=== PATIENT | female | born 1985 | race Caucasian/White ===

== ENCOUNTER 2016-11-09 15:07 | Emergency (ER) | payer MEDICAID ==
[2016-11-09 15:27] VITALS: BP 149/101
[2016-11-09] MEDS ORDERED: Lidocaine/EPINEPHrine/Tetracaine Soln 1 ML TOP ONE (17:13)
[2016-11-09] MEDS ORDERED: Lidocaine/EPINEPHrine/Tetracaine Soln 1 ML ONE (17:36)
--- NOTE | 2016-11-09 17:51 | EDM.PDOC ---
ED HPI GENERAL MEDICAL PROBLEM - General Chief Complaint: Skin Complaint Stated Complaint: ABSCESS Time Seen by Provider: 11/09/16 15:37 Source of Information: Reports: Patient, Family (mother), Other (ABLE RN) History Limitations: Reports: No Limitations - History of Present Illness INITIAL COMMENTS - FREE TEXT/NARRATIVE: 30-year-old developmentally disabled woman is brought in by her able briefcase sewer and her mother. She is brought in for evaluation treatment of an abscess to the right ear and the right buttocks. Patient was seen by her primary care provider on Sunday for these. She was started on Bactrim and prescribed bacitracin ointment. The RN who works with her feels that her abscess is worsening. Reportedly this morning she was in tears due to the pain and discomfort. Reportedly she had a temperature of 99.1 this morning. This decreased with Tylenol. Reportedly the abscess to the Buttocks was much larger this morning. Has improved with a whirlpool bath. The RN was concerned as she felt there was a necrotic area to the center of the abscess. She has been treating her pain with Tylenol. Patient is nonverbal is unable to provide any history. Cultures of the wounds were taken at the patient's PCP appointment on Sunday. An I&D to the right ear was preformed by PCP. No results available on my chart. RN reports preliminary report showed normal skin terrell. Location: Reports: Face, Other (buttocks) Treatments PAVING MACHINE OPERATOR: Reports: Other (see below) Other Treatments PAVING MACHINE OPERATOR: antibiotic therapy - Related Data Allergies Allergy/AdvReac Type Severity Reaction Status Date / Time codeine Allergy Hives Verified 11/09/16 15:27 morphine Allergy Hives Verified 11/09/16 15:27 enviromental Allergy Hives Uncoded 11/09/16 15:27 Home Meds: Home Meds Acetaminophen [Tylenol] 1 - 2 tab PO Q4H PRN 09/20/13 [History] Acyclovir [Zovirax] 1 applic TOP 5XDAY PRN 09/20/13 [History] Bisacodyl [Dulcolax] 10 mg RC ASDIRECTED PRN 09/20/13 [History] Euc Oil/Aloe/Lav&Rosem Oils/Pt [Vicks Babyrub Soothing Oint] 1 dose TOP ASDIRECTED PRN 09/20/13 [History] Glucagon,Human Recombinant [Glucagon Emergency Kit] 1 mg IJ ASDIRECTED PRN 09/20 [History] Ketoconazole [Ketoconazole 2%] 1 applic TOP ASDIRECTED 09/20/13 [History] Lactobacillus Acidophilus [Acidophilus] 1 each PO TID 09/20/13 [History] Loratadine 10 mg PO DAILY 09/20/13 [History] Magnesium Hydroxide [Milk of Magnesia] 2 - 4 tbsp PO ASDIRECTED PRN 09/20/13 [ History] Mylanta. 2 - 4 tsp PO ASDIRECTED PRN 09/20/13 [History] Sodium Bicarbonate 1,300 mg PO DAILY 09/20/13 [History] amLODIPine [Norvasc] 5 mg PO BID 09/20/13 [History] guaiFENesin/Dextromethorphan [Robafen Dm Cough Liquid] 2 tsp PO Q4H PRN [History] Amylase/Lipase/Protease [Creon DR 24,000 Units] 0.5 cap PO TID 05/05/15 [History ] Ranitidine HCl [Zantac] 150 mg PO DAILY 05/05/15 [History] Bacitracin [Bacitracin Oint 1 GM] 1 dose TOP ASDIRECTED PRN 11/09/16 [History] Bacitracin/Neomycin/Polymyxin [Triple Antibiotic Oint] 1 each TOP QID 11/09/16 [ History] Calcium Carb/Magnesium Hydrox [IL-Acid DS] 1 each PO BID 11/09/16 [History] [place] Tar [T+Plus] 1 applic TP ASDIRECTED PRN 11/09/16 [History] D-Methorphan Hb/P-Ephed HCl/Cp [Pedia Relief Cough-Cold] 4 tsp PO Q6H PRN [History] Docusate Sodium/Sennosides [Senna Plus] 1 tab PO DAILY PRN 11/09/16 [History] Doxycycline [Vibramycin] 100 mg PO Q12HR #19 cap 11/09/16 [Rx] Enlive Supplement 1 dose PO DAILY 11/09/16 [History] Insulin Glargine,Hum.Rec.Anlog [Toujeo Solostar] 8 unit SQ DAILY 11/09/16 [ History] Lubiprostone [Amitiza] 24 mcg PO BID 11/09/16 [History] Miconazole Nitrate [Monistat 7] 45 gm VG DAILY 11/09/16 [History] Mupirocin Calcium [Mupirocin] 1 appful TP QID 11/09/16 [History] Olopatadine [Patanol 0.1% Ophth Soln] 1 drop EYEBOTH DAILY 11/09/16 [History] Potassium Chloride 20 meq PO DAILY 11/09/16 [History] Sennosides/Docusate Sodium [Senokot-S Tablet] 2 tab PO DAILY 11/09/16 [History] Sulfamethoxazole/Trimethoprim [Bactrim Ds Tablet] 1 each PO BID 11/09/16 [ History] levETIRAcetam [Keppra] 750 mg PO BID 11/09/16 [History] Past Medical History HEENT History: Reports: Other (See Below) Other HEENT History: chronic ear infections Cardiovascular History: Reports: Hypertension Respiratory History: Reports: Asthma Gastrointestinal History: Reports: Pancreatitis Genitourinary History: Reports: Urinary Incontinence, Other (See Below) Other Genitourinary History: kidney reflux Musculoskeletal History: Reports: Other (See Below) Other Musculoskeletal History: contractures Neurological History: Reports: Seizure Psychiatric History: Reports: Other (See Below) Other Psychiatric History: cognitive deficit Endocrine/Metabolic History: Reports: Diabetes, Type II Other Immunologic History: immunoglobin insufficieny Other Dermatologic History: eczema, abcesses - Infectious Disease History Infectious Disease History: Reports: C-Difficile, MRSA Other Infectious Disease History: hx of - Past Surgical History HEENT Surgical History: Reports: Myringotomy w Tube(s) Cardiovascular Surgical History: Reports: Other (See Below) Other Cardiovascular Surgeries/Procedures: PDA surgery when a child Other Musculoskeletal Surgeries/Procedures:: congential hip dislocation Social & Family History - Family History Family Medical History: Noncontributory - Tobacco Use Smoking Status *Q: Never Smoker Second Hand Smoke Exposure: No - Caffeine Use Caffeine Use: Reports: None - Alcohol Use Days Per Week of Alcohol Use: 0 - Recreational Drug Use Recreational Drug Use: No ED ROS GENERAL - Review of Systems Review Of Systems: See Below Constitutional: Reports: Malaise (reports the patinet was tearful this morning; believed to be in discomfort from the abscesses). Denies: Fever (reports a temp of 99.1, responded to tylenol) GI/Abdominal: Denies: Vomiting Skin: Reports: Erythema (right ear and right buttocks), Wound (reportly the abscess to the right buttocks has a nectoric center) ED EXAM, SKIN/RASH Exam: See Below Exam Limited By: Physical Impairment (severe MR) General Appearance: Alert, WD/WN, No Apparent Distress Nose: Normal Inspection Throat/Mouth: Normal Inspection, No Airway Compromise Respiratory/Chest: No Respiratory Distress, Lungs Clear Cardiovascular: Normal Peripheral Pulses, Regular Rate, Rhythm, No Murmur Neurological: Alert Location, Skin: Face (right tragus; approximately 2cm in diameter indurated area with surrounding erythema and increased warmth), Back (right buttocks, superior gluteal fold approximately 2cm in diameter indurated area with approximately 4cm in diameter area of increased warmth and erythema the central indurated area has opened and a small amount of blood is appreciated no necrosis appreciated) ED SKIN PROCEDURES - I&D Site: right tragus Skin Prep: Other (kerraclens) Area Incised With: Needle (18 gauge) Drainage: Purulent, Moderate Amount Probed to Break Up Loculations: No Complications: No Course - Vital Signs Last Recorded V/S: Last Vital Signs Temp 37.2 C 11/09/16 15:14 Pulse 110 H 11/09/16 15:14 Resp 20 11/09/16 15:14 BP 149/101 H 11/09/16 15:14 Pulse Ox 100 11/09/16 15:14 - Orders/Labs/Meds Meds: Medications Discontinued Medications Generic Name Dose Route Start Last Admin Trade Name Pablo PRN Reason Stop Dose Admin Doxycycline Hyclate 100 mg 11/09/16 18:11 11/09/16 18:43 Vibramycin PO 11/09/16 18:12 100 mg ONETIME ONE Administration Lidocaine/Tetracaine 1 ml 11/09/16 17:13 11/09/16 17:34 Let Soln TOP 11/09/16 17:14 1 ml ONETIME ONE Administration Lidocaine/Tetracaine Confirm 11/09/16 17:36 Let Soln Administered 11/09/16 17:37 Dose 1 ml .ROUTE .STK-MED ONE - Re-Assessments/Exams Free Text/Narrative Re-Assessment/Exam: 11/09/16 17:55 I attempted to contact Dr. Adorno for more information and culture results but was unable to get ahold of him. I&D of the abscess to the right ear was preformed utilizing an 18 gauge needle. The patient tolerated the procedure well. Cultures were not taken as they had been by her PCP. I did not feel the area to the right buttocks required I&D at this time. Offered additional pain medication. It was decided to keep her on tylenol and motrin due to her allergies and seizure history. Will keep on bactim and add doxycycline. Close follow-up with PCP. Discharge instructions as documented. Departure - Departure Time of Disposition: 18:07 Disposition: Home, Self-Care 01 Condition: Fair Clinical Impression: Abscess Cellulitis Qualifiers: Site of cellulitis: face Qualified Code(s): L03.211 - Cellulitis of face - Discharge Information Prescriptions: Doxycycline [Vibramycin] 100 mg PO Q12HR #19 cap Instructions: Cellulitis, Adult, Abscess, [id number] Referrals: Kyle Dobbs MD [Primary Care Provider] - Forms: ED Department Discharge Additional Instructions: Continue on the Bactrim and bacitracin. Doxycycline 1 tab PO bid x 10 days. Continue with warm soaks to the abscesses. Follow-up with PCP in 7-10 days for a recheck. OTC tylenol or motrin as needed for pain relief. Please return to the ER should her symptoms change or worsen.
[2016-11-09] MEDS ORDERED: Doxycycline 100 MG Cap PO ONE (18:11)
== END 2016-11-09 18:40 | disposition home or self-care (01) ==
LOC: JD.ED 15:07
DX: L03.211 Cellulitis of face (principal); L02.31 Cutaneous abscess of buttock; I10 Essential (primary) hypertension; J45.909 Unspecified asthma, uncomplicated; E11.9 Type 2 diabetes mellitus without complications; Z98.890 Other specified postprocedural states; Z96.22 Myringotomy tube(s) status; Z79.4 Long term (current) use of insulin; Z79.899 Other long term (current) drug therapy; Z88.5 Allergy status to narcotic agent
CPT/HCPCS: 99283; A9270; 10160

== ENCOUNTER 2018-11-08 13:08 | Emergency (ER) | payer MEDICAID ==
[2018-11-08] MEDS ORDERED: Sodium Chloride 0.9% 10 ML Syringe FLUSH PRN (14:25)
[2018-11-08] MEDS ORDERED: Sodium Chloride 0.9% 500 ML IV SCH (14:30)
--- NOTE | 2018-11-08 15:36 | EDM.PDOC ---
ED HPI GENERAL MEDICAL PROBLEM - General Chief Complaint: Gastrointestinal Problem Stated Complaint: FEVER,NOT EATING,DIARRHEA Time Seen by Provider: 11/08/18 13:35 Source of Information: Reports: Family, RN History Limitations: Reports: Physical Impairment - History of Present Illness INITIAL COMMENTS - FREE TEXT/NARRATIVE: Patient is a 32-year-old female from [place]. Patient presents to the ED with mother and also nurse that takes care of the patient. They're concerned patient has persistent diarrhea. Diarrhea has been noted over the last 9 days. States patient has had 3 episodes yesterday unclear how many today.In addition patient was feverish with nausea and vomiting of 101.9F this past Sunday. Patient has not had any further fevers. Her appetite is poor. She's been having a difficult time in taking her medications. Of note [facility] member at the [facility] vomited with no diarrhea and symptoms subsided quickly. Mother and nurse present are concerned patient may have pancreatitis . She's had one episode of pancreatitis leading to difficulties with eating. Patient has been drink plenty of fluids. There has been no ingestion of any bad or questionable food. Patient has not been on any recent antibiotics. Nor has the patient had any dark tarry stools, bloody stools or any complaints of pain with urination. No foul order noted to her urine. She does have a rash to her low back, buttocks, and groin region diagnosed as psoriasis. This is not new but chronic. There's been no cough. Patient has history of C. difficile. Her mouth is moist. Nursing staff noted patient's heart rate was elevated. 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 Treatments SPOOL CARRIER: Reports: Acetaminophen Other Treatments SPOOL CARRIER: 1130 - Related Data Allergies Allergy/AdvReac Type Severity Reaction Status Date / Time codeine Allergy Hives Verified 11/08/18 13:15 morphine Allergy Hives Verified 11/08/18 13:15 enviromental Allergy Hives Uncoded 11/08/18 13:15 Home Meds: Home Meds Acetaminophen [Tylenol] 1 - 2 tab PO Q4H PRN 09/20/13 [History] Acyclovir [Zovirax 5% Oint] 1 applic TOP 5XDAY PRN 09/20/13 [History] Bisacodyl [Dulcolax] 10 mg RC ASDIRECTED PRN 09/20/13 [History] Euc Oil/Aloe/Lav&Rosem Oils/Pt [Vicks Babyrub Soothing Oint] 1 dose TOP ASDIRECTED PRN 09/20/13 [History] Ketoconazole [Nizoral 2% Shampoo] 1 applic TOP ASDIRECTED 09/20/13 [History] Lactobacillus Acidophilus [Acidophilus] 1 each PO TID 09/20/13 [History] Loratadine 10 mg PO DAILY 09/20/13 [History] Magnesium Hydroxide [Milk of Magnesia] 2 - 4 tbsp PO ASDIRECTED PRN 09/20/13 [ History] Mylanta. 2 - 4 tsp PO ASDIRECTED PRN 09/20/13 [History] Sodium Bicarbonate 1,300 mg PO DAILY 09/20/13 [History] amLODIPine [Norvasc] 5 mg PO BID 09/20/13 [History] guaiFENesin/Dextromethorphan [Robafen Dm Cough Liquid] 2 tsp PO Q4H PRN [History] Amylase/Lipase/Protease [Rom DR 24,000 Unit] 0.5 cap PO TID 05/05/15 [History] Bacitracin [Bacitracin Oint 1 GM] 1 dose TOP ASDIRECTED PRN 11/09/16 [History] Bacitracin/Neomycin/Polymyxin [Triple Antibiotic Oint] 1 each TOP QID 11/09/16 [ History] Calcium Carb/Magnesium Hydrox [ID-Acid DS] 1 each PO BID 11/09/16 [History] Chlorpheniramin/Pseudoephed/Dm [Pedia Relief Cough-Cold] 4 tsp PO Q6H PRN [History] [place] Tar [T-Plus] 1 applic TP ASDIRECTED PRN 11/09/16 [History] Docusate Sodium/Sennosides [Senna Plus] 1 tab PO DAILY PRN 11/09/16 [History] Enlive Supplement 1 dose PO DAILY 11/09/16 [History] Lubiprostone [Amitiza] 24 mcg PO BID 11/09/16 [History] Miconazole Nitrate [Monistat 7] 45 gm VG DAILY 11/09/16 [History] Mupirocin Calcium [Mupirocin] 1 appful TP QID 11/09/16 [History] Olopatadine [Patanol 0.1% Ophth Soln] 1 drop EYEBOTH DAILY 11/09/16 [History] Sennosides/Docusate Sodium [Senokot-S Tablet] 2 tab PO DAILY 11/09/16 [History] levETIRAcetam [Keppra] 750 mg PO BID 11/09/16 [History] Ferrous Sulfate [Iron] 325 mg PO BID #60 tablet 11/08/18 [Rx] Hyoscyamine [Hyomax-SL] 0.125 mg SL BID 11/08/18 [History] Insulin Glarg,Human.Rec.Analog [Lantus Solostar] 8 unit SUBCUT DAILY 11/08/18 [ History] Nystatin [Nystatin Crm] 0 gm TOP TID 11/08/18 [History] Pantoprazole Sodium [Protonix] 20 mg PO DAILY 11/08/18 [History] Past Medical History HEENT History: Reports: Other (See Below) Other HEENT History: chronic ear infections Cardiovascular History: Reports: Hypertension Respiratory History: Reports: Asthma Gastrointestinal History: Reports: Pancreatitis Genitourinary History: Reports: Urinary Incontinence, Other (See Below) Other Genitourinary History: kidney reflux Musculoskeletal History: Reports: Other (See Below) Other Musculoskeletal History: contractures Neurological History: Reports: Seizure Psychiatric History: Reports: Other (See Below) Other Psychiatric History: cognitive deficit Endocrine/Metabolic History: Reports: Diabetes, Type II Other Immunologic History: immunoglobin insufficieny Other Dermatologic History: eczema, abcesses - Infectious Disease History Infectious Disease History: Reports: C-Difficile, MRSA Other Infectious Disease History: hx of - Past Surgical History HEENT Surgical History: Reports: Myringotomy w Tube(s) Cardiovascular Surgical History: Reports: Other (See Below) Other Cardiovascular Surgeries/Procedures: PDA surgery when a child Other Musculoskeletal Surgeries/Procedures:: congential hip dislocation Social & Family History - Family History Family Medical History: Noncontributory - Tobacco Use Smoking Status *Q: Never Smoker - Caffeine Use Caffeine Use: Reports: None ED ROS GENERAL - Review of Systems Review Of Systems: Unable To Obtain ED EXAM, GI/ABD - Physical Exam Exam: See Below Exam Limited By: Other (Patient is mentally disabled unable to vocalize. Patient is laying on her back/left side. Makes eye contact does not appear in acute distress. Per family this is her normal mentation.) General Appearance: Alert, WD/WN, No Apparent Distress Eyes: Bilateral: Normal Appearance Ears: Normal External Exam, Normal Canal, Hearing Grossly Normal, Normal TMs Nose: Normal Inspection, Normal Mucosa, No Blood Throat/Mouth: Other (Unable to visualize the posterior pharynx patient is uncooperative.) Head: Atraumatic, Normocephalic Neck: Normal Inspection, Supple, Non-Tender, Full Range of Motion. No: Lymphadenopathy (L), Lymphadenopathy (R) Respiratory/Chest: No Respiratory Distress, Lungs Clear, Normal Breath Sounds, No Accessory Muscle Use, Chest Non-Tender Cardiovascular: Normal Peripheral Pulses, Regular Rate, Rhythm GI/Abdominal Exam: Normal Bowel Sounds, Soft, Non-Tender, No Organomegaly, No Distention Extremities: Normal Inspection, Non-Tender Neurological: Alert, Oriented, CN II-XII Intact, Normal Cognition, No Motor/ Sensory Deficits Psychiatric: Normal Affect (Per family), Normal Mood (Per family) Skin Exam: Warm, Dry, Intact, Normal Color Course - Vital Signs Last Recorded V/S: Last Vital Signs Temp 98.2 F 11/08/18 17:30 Pulse 94 11/08/18 17:30 Resp 16 11/08/18 17:30 BP 123/78 11/08/18 17:30 Pulse Ox 99 11/08/18 17:30 - Orders/Labs/Meds Labs: Laboratory Tests 11/08/18 11/08/18 11/08/18 Range/Units 14:40 14:40 14:45 WBC 6.86 (3.98-10.04) K/mm3 RBC 3.95 L (3.98-5.22) M/mm3 Hgb 8.6 L D (11.2-15.7) gm/L Hct 30.6 L (34.1-44.9) % MCV 77.5 L D (79.4-94.8) fl MCH 21.8 L (25.6-32.2) pg MCHC 28.1 L (32.2-35.5) g/dl RDW Std Deviation 45.2 (36.4-46.3) fL Plt Count 111 L (182-369) K/mm3 Neut % (Auto) 64.6 (34.0-71.1) % Lymph % (Auto) 21.1 (19.3-51.7) % Andrews % (Auto) 13.6 H (4.7-12.5) % Eos % (Auto) 0.6 L (0.7-5.8) Baso % (Auto) 0.1 (0.1-1.2) % Neut # (Auto) 4.43 (1.56-6.13) K/mm3 Lymph # (Auto) 1.45 (1.18-3.74) K/mm3 Andrews # (Auto) 0.93 H (0.24-0.36) K/mm3 Eos # (Auto) 0.04 (0.04-0.36) K/mm3 Baso # (Auto) 0.01 (0.01-0.08) K/mm3 Manual Slide Review Abnormal smear Sodium 142 (136-145) mEq/L Potassium 3.8 (3.5-5.1) mEq/L Chloride 104 (98-107) mEq/L Carbon Dioxide 29 (21-32) mEq/L Anion Gap 12.8 (5-15) BUN 14 (7-18) mg/dL Creatinine 0.8 (0.55-1.02) mg/dL Est Cr Clr Drug Dosing TNP Estimated GFR (MDRD) > 60 (>60) mL/min BUN/Creatinine Ratio 17.5 (14-18) Glucose 110 H (74-106) mg/dL Calcium 9.6 (8.5-10.1) mg/dL Iron 19 L (50-170) ug/dL TIBC 338 (100-400) ug/dL % Saturation 6 L (20-55) % Transferrin 270 (202-364) mg/dL Total Bilirubin 0.2 (0.2-1.0) mg/dL AST 25 (15-37) U/L ALT 21 (14-59) U/L Alkaline Phosphatase 71 (46-116) U/L C-Reactive Protein 8.8 H* (<1.0) mg/dL Total Protein 6.6 (6.4-8.2) g/dl Albumin 2.9 L (3.4-5.0) g/dl Globulin 3.7 gm/dL Albumin/Globulin Ratio 0.8 L (1-2) Lipase 340 (73-393) U/L Urine Color (Yellow) Urine Appearance (Clear) Urine pH (5.0-8.0) Ur Specific Edwards (1.005-1.030) Urine Protein (Negative) Urine Glucose (UA) (Negative) Urine Ketones (Negative) Urine Occult Blood (Negative) Urine Nitrite (Negative) Urine Bilirubin (Negative) Urine Urobilinogen (0.2-1.0) Ur Leukocyte Esterase (Negative) Urine RBC (0-5) /hpf Urine WBC (0-5) /hpf Ur Epithelial Cells (0-5) /hpf Urine Bacteria (FEW) /hpf Urine Mucus (FEW) /hpf C.difficile [id number]-NAP1-B1 C. difficile Tox (PCR) 11/08/18 11/08/18 Range/Units 15:05 23:59 WBC (3.98-10.04) K/mm3 RBC (3.98-5.22) M/mm3 Hgb (11.2-15.7) gm/L Hct (34.1-44.9) % MCV (79.4-94.8) fl MCH (25.6-32.2) pg MCHC (32.2-35.5) g/dl RDW Std Deviation (36.4-46.3) fL Plt Count (182-369) K/mm3 Neut % (Auto) (34.0-71.1) % Lymph % (Auto) (19.3-51.7) % Andrews % (Auto) (4.7-12.5) % Eos % (Auto) (0.7-5.8) Baso % (Auto) (0.1-1.2) % Neut # (Auto) (1.56-6.13) K/mm3 Lymph # (Auto) (1.18-3.74) K/mm3 Andrews # (Auto) (0.24-0.36) K/mm3 Eos # (Auto) (0.04-0.36) K/mm3 Baso # (Auto) (0.01-0.08) K/mm3 Manual Slide Review Sodium (136-145) mEq/L Potassium (3.5-5.1) mEq/L Chloride (98-107) mEq/L Carbon Dioxide (21-32) mEq/L Anion Gap (5-15) BUN (7-18) mg/dL Creatinine (0.55-1.02) mg/dL Est Cr Clr Drug Dosing Estimated GFR (MDRD) (>60) mL/min BUN/Creatinine Ratio (14-18) Glucose (74-106) mg/dL Calcium (8.5-10.1) mg/dL Iron (50-170) ug/dL TIBC (100-400) ug/dL % Saturation (20-55) % Transferrin (202-364) mg/dL Total Bilirubin (0.2-1.0) mg/dL AST (15-37) U/L ALT (14-59) U/L Alkaline Phosphatase (46-116) U/L C-Reactive Protein (<1.0) mg/dL Total Protein (6.4-8.2) g/dl Albumin (3.4-5.0) g/dl Globulin gm/dL Albumin/Globulin Ratio (1-2) Lipase (73-393) U/L Urine Color Yellow (Yellow) Urine Appearance Clear (Clear) Urine pH 6.5 (5.0-8.0) Ur Specific Edwards 1.015 (1.005-1.030) Urine Protein Trace H (Negative) Urine Glucose (UA) Negative (Negative) Urine Ketones Negative (Negative) Urine Occult Blood Trace-intact H (Negative) Urine Nitrite Negative (Negative) Urine Bilirubin Negative (Negative) Urine Urobilinogen 0.2 (0.2-1.0) Ur Leukocyte Esterase Negative (Negative) Urine RBC 0-5 (0-5) /hpf Urine WBC 0-5 (0-5) /hpf Ur Epithelial Cells 0-5 (0-5) /hpf Urine Bacteria Not seen (FEW) /hpf Urine Mucus Not seen (FEW) /hpf C.difficile 027-[id number] Presumptive negative C. difficile Tox (PCR) Negative Meds: Medications Discontinued Medications Generic Name Dose Route Start Last Admin Trade Name Freq PRN Reason Stop Dose Admin Sodium Chloride 500 mls @ 250 mls/hr 11/08/18 14:30 11/08/18 14:47 Normal Saline IV 250 mls/hr ASDIRECTED OC Administration Sodium Chloride 10 ml 11/08/18 14:25 11/08/18 14:31 Saline Flush FLUSH 10 ml ASDIRECTED PRN Administration Keep Vein Open - Re-Assessments/Exams Free Text/Narrative Re-Assessment/Exam: On exam patient is mildly tachycardic with normotensive blood pressure. Heart rate 102. Temp 97.8F. Oromucosa is moist. Abdomen is soft nondistended with normoactive bowel sounds. Patient does not appear in acute distress. Mentation is normal per family. I will go ahead and obtain a peripheral IV with blood culture times one, CBC, chem 14, CRP, lipase, urinalysis per quick in and out catheter, and stool WBCs. Have also ordered a fluid bolus of 500 mL of normal saline. 1344 Labs reviewed: CBC indicated a normal white blood cell count of 6.86. Hemoglobin low at 8.6, MCV 77.5, platelet count 111, monocytes 13.6, monocyte numbers 0.93. Sodium 142, potassium 3.8, CO2 29, creatinine 0.8, glucose 110, CRP 8.8, lipase normal at 340. UA trace protein and trace occult blood. Per mother patient is currently on her period. 11/08/18 16:44 I did discussed patient with PCP Dr. Adorno who is fortunately heavy antiarmor weapons infantryman. He does not recall patient having a history of anemia. Recommended iron studies and place patient on iron supplement. F/U in the clinic with him next week. Agrees diarrhea may be a viral GI bug with recent exposure to someone that lives in the same facility with suspected viral GI bug. 1657 With female nurse present digital rectal exam performed with formed brown stool within the rectal vault. Hemoccult test was negative. Vital signs blood pressure 93/50. Heart rate 72. Patient resting completed. She is afebrile. Patient has not had a bowel movement since presenting to the ED. I will discharge patient home with nursing staff and mother. Stool studies have been ordered. Collection device for the stool study as well as instructions on where to delivered have been provided. Return precautions were discussed with them. They had no further questions or concerns and agreed with plan. Discharge instructions as documented. Departure - Departure Time of Disposition: 17:01 Disposition: Home, Self-Care 01 Condition: Good Clinical Impression: Poor appetite, Dehydration Diarrhea Qualifiers: Diarrhea type: unspecified type Qualified Code(s): R19.7 - Diarrhea, unspecified Anemia Qualifiers: Anemia type: unspecified type Qualified Code(s): D64.9 - Anemia, unspecified - Discharge Information Prescriptions: Ferrous Sulfate [Iron] 325 mg PO BID #60 tablet Instructions: Diarrhea, Adult, Anemia, Viral Gastroenteritis, Adult, Easy-to- Read, Food Choices to Help Relieve Diarrhea, Adult, Dehydration, Adult Referrals: Kyle Dobbs MD [Primary Care Provider] - Forms: ED Department Discharge Additional Instructions: Please take the iron supplement as prescribed. In addition it is unclear what is causing the diarrhea. Patient did have formed stool within her rectal vault suggesting that she may be constipated. X-ray of the abdomen reviewed no acute findings. Final interpretation is pending. CBC indicated patient is anemic with negative hemoccult. Patient will be placed on iron supplement. Patient may become constipated with the taking. Suggest taking with cybv-[id number]-[id number] calcium supplements while on the iron supplement. Please follow up with Dr. Sheri Sabillon this coming week for reevaluation. Push the fluids. Refrain from any foods that may cause irritation or worsen her diarrhea. Outpatient order for stool wbc 's and also C. difficile have been placed. Once the stool sample is present please bring to the [facility] lab. See Dr. Adorno for results. Please return back to the ED if patient develops any new or worsening symptoms.
[2018-11-08 17:54] VITALS: BP 123/78
--- NOTE | 2018-11-11 07:17 | CR ---
Abdomen: Upright view of the abdomen was obtained. Comparison: Prior abdominal x-ray of 06/03/09. Slight increased gas within colon and small bowel is seen. Gas is interposed between liver and diaphragm as a normal variant. Gas most likely due to mild ileus or excessive swallowed gas. Findings do not appear as prominent as on prior abdominal x-ray. No free air is seen. Impression: 1. Slight increased gas as noted above. 2. No acute abnormality is otherwise seen on single upright abdominal x-ray. Diagnostic code #2
== END 2018-11-08 17:40 | disposition home or self-care (01) ==
LOC: JD.ED 13:08
DX: E86.0 Dehydration (principal); R19.7 Diarrhea, unspecified; D64.9 Anemia, unspecified; R63.0 Anorexia; I10 Essential (primary) hypertension; J45.909 Unspecified asthma, uncomplicated; E11.9 Type 2 diabetes mellitus without complications; Z79.4 Long term (current) use of insulin; Z79.899 Other long term (current) drug therapy; Z88.5 Allergy status to narcotic agent; Z91.09 Other allergy status, other than to drugs and biological substances
CPT/HCPCS: 36415; 74018; 80053; 81001; 82270; 83540; 83690; 84466; 85025; 86140; 87040; 87493; 89055; 96360; 96361; 99284; J7040; 99283

== ENCOUNTER 2019-05-11 14:59 | Emergency (ER) | payer MEDICAID ==
--- NOTE | 2019-05-11 15:41 | EDM.PDOC ---
ED HPI GENERAL MEDICAL PROBLEM - General Chief Complaint: ENT Problem Stated Complaint: RT EAR PAIN Time Seen by Provider: 05/11/19 15:27 Source of Information: Reports: Provider (Able staff worker), RN Notes Reviewed History Limitations: Reports: No Limitations - History of Present Illness INITIAL COMMENTS - FREE TEXT/NARRATIVE: Patient is a 33-year-old female who is brought to the ER by [facility] staff for issues with the right ear. The staff member noticed that the patient was grabbing or tugging at her right ear today, more than she normally does. She did notice some yellowish kind of malodorous drainage from the ear at this time. The patient is nonverbal, so she cannot say if this hurts or not. They had not given her anything for pain. The worker does note that the patient did have a recent cold last week, but states that her symptoms seem to have subsided. The patient does have a positive history for diabetes, chronic ear infections, hypertension, asthma, and other skin issues. She suffers from a developmental delay as well. The worker notes that the patient did not have a fever while in their care, however at time of triage she was mildly febrile with a fever of 99.2 F. Treatments BRAILLE TEACHER: Reports: Other (see below) Other Treatments BRAILLE TEACHER: none - Related Data Allergies Allergy/AdvReac Type Severity Reaction Status Date / Time codeine Allergy Hives Verified 11/08/18 13:15 morphine Allergy Hives Verified 11/08/18 13:15 enviromental Allergy Hives Uncoded 11/08/18 13:15 Home Meds: Home Meds Acetaminophen [Tylenol] 1 - 2 tab PO Q4H PRN 09/20/13 [History] Acyclovir [Zovirax 5% Oint] 1 applic TOP 5XDAY PRN 09/20/13 [History] Bisacodyl [Dulcolax] 10 mg RC ASDIRECTED PRN 09/20/13 [History] Euc Oil/Aloe/Lav&Rosem Oils/Pt [Vicks Babyrub Soothing Oint] 1 dose TOP ASDIRECTED PRN 09/20/13 [History] Ketoconazole [Nizoral 2% Shampoo] 1 applic TOP ASDIRECTED 09/20/13 [History] Lactobacillus Acidophilus [Acidophilus] 1 each PO TID 09/20/13 [History] Loratadine 10 mg PO DAILY 09/20/13 [History] Magnesium Hydroxide [Milk of Magnesia] 2 - 4 tbsp PO ASDIRECTED PRN 09/20/13 [ History] Mylanta. 2 - 4 tsp PO ASDIRECTED PRN 09/20/13 [History] Sodium Bicarbonate 1,300 mg PO DAILY 09/20/13 [History] amLODIPine [Norvasc] 5 mg PO BID 09/20/13 [History] guaiFENesin/Dextromethorphan [Robafen Dm Cough Liquid] 2 tsp PO Q4H PRN [History] Amylase/Lipase/Protease [Rom SOTO 24,000 Unit] 0.5 cap PO TID 05/05/15 [History] Bacitracin [Bacitracin Oint 1 GM] 1 dose TOP ASDIRECTED PRN 11/09/16 [History] Bacitracin/Neomycin/Polymyxin [Triple Antibiotic Oint] 1 each TOP QID 11/09/16 [ History] Calcium Carb/Magnesium Hydrox [SD-Acid DS] 1 each PO BID 11/09/16 [History] Chlorpheniramin/Pseudoephed/Dm [Pedia Relief Cough-Cold] 4 tsp PO Q6H PRN [History] [place] Tar [T-Plus] 1 applic TP ASDIRECTED PRN 11/09/16 [History] Docusate Sodium/Sennosides [Senna Plus] 1 tab PO DAILY PRN 11/09/16 [History] Enlive Supplement 1 dose PO DAILY 11/09/16 [History] Lubiprostone [Amitiza] 24 mcg PO BID 11/09/16 [History] Miconazole Nitrate [Monistat 7] 45 gm VG DAILY 11/09/16 [History] Mupirocin Calcium [Mupirocin] 1 appful TP QID 11/09/16 [History] Olopatadine [Patanol 0.1% Ophth Soln] 1 drop EYEBOTH DAILY 11/09/16 [History] Sennosides/Docusate Sodium [Senokot-S Tablet] 2 tab PO DAILY 11/09/16 [History] levETIRAcetam [Keppra] 750 mg PO BID 11/09/16 [History] Ferrous Sulfate [Iron] 325 mg PO BID #60 tablet 11/08/18 [Rx] Hyoscyamine [Hyomax-SL] 0.125 mg SL BID 11/08/18 [History] Insulin Glarg,Human.Rec.Analog [Lantus Solostar] 8 unit SUBCUT DAILY 11/08/18 [ History] Nystatin [Nystatin Crm] 0 gm TOP TID 11/08/18 [History] Pantoprazole Sodium [Protonix] 20 mg PO DAILY 11/08/18 [History] Amoxicillin 875 mg PO BID #20 tab 05/11/19 [Rx] Ciprofloxacin/Dexamethasone [Ciprodex Otic Susp] 4 drop OT BID #1 bottle [Rx] Past Medical History HEENT History: Reports: Other (See Below) Other HEENT History: chronic ear infections Cardiovascular History: Reports: Hypertension Respiratory History: Reports: Asthma Gastrointestinal History: Reports: Pancreatitis Genitourinary History: Reports: Urinary Incontinence, Other (See Below) Other Genitourinary History: kidney reflux Musculoskeletal History: Reports: Other (See Below) Other Musculoskeletal History: contractures Neurological History: Reports: Seizure Psychiatric History: Reports: Other (See Below) Other Psychiatric History: cognitive deficit Endocrine/Metabolic History: Reports: Diabetes, Type II Other Immunologic History: immunoglobin insufficieny Other Dermatologic History: eczema, abcesses - Infectious Disease History Infectious Disease History: Reports: C-Difficile, MRSA Other Infectious Disease History: hx of - Past Surgical History HEENT Surgical History: Reports: Myringotomy w Tube(s) Cardiovascular Surgical History: Reports: Other (See Below) Other Cardiovascular Surgeries/Procedures: PDA surgery when a child Other Musculoskeletal Surgeries/Procedures:: congential hip dislocation Social & Family History - Family History Family Medical History: Noncontributory - Tobacco Use Smoking Status *Q: Never Smoker - Caffeine Use Caffeine Use: Reports: None - Recreational Drug Use Recreational Drug Use: No ED ROS ENT - Review of Systems Review Of Systems: See Below Constitutional: Reports: Fever. Denies: Chills, Malaise, Decreased Appetite HEENT: Reports: Ear Discharge (R ear), Ear Pain (R ear) Respiratory: Denies: Shortness of Breath, Cough Cardiovascular: Denies: Chest Pain GI/Abdominal: Denies: Abdominal Pain, Constipation, Diarrhea, Nausea, Vomiting : Denies: Dysuria, Frequency, Urgency ED EXAM, ENT - Physical Exam Exam: See Below Exam Limited By: No Limitations General Appearance: Alert, WD/WN, No Apparent Distress Eye Exam: Bilateral Eye: EOMI (pt tracks me in room), Normal Inspection, PERRL Ears: Normal External Exam (left ear), Normal Canal (left ear), Hearing Grossly Normal (bilateral), Normal TMs (bilateral), Canal Discharge (R EAC). No: Auricular Tenderness, Mastoid Tenderness, Canal Blood, Canal Swelling (Right EAC ) Nose: Normal Inspection Mouth/Throat: Normal Inspection, Normal Gums, Normal Lips, Normal Oropharynx, Normal Teeth Head: Atraumatic, Normocephalic Neck: Normal Inspection Respiratory/Chest: No Respiratory Distress, Lungs Clear, Normal Breath Sounds, No Accessory Muscle Use, Chest Non-Tender Cardiovascular: Normal Peripheral Pulses, Regular Rate, Rhythm, No Murmur GI/Abdominal: Normal Bowel Sounds, Soft, Non-Tender, No Distention, No Mass Extremities: Normal Inspection, Normal Capillary Refill Neurological: Alert (staff states that she is acting appropriate per her usual behaviors.) Psychiatric: Normal Affect, Normal Mood Skin: Warm, Dry, Intact, Normal Color, No Rash Course - Vital Signs Last Recorded V/S: Last Vital Signs Temp 99.2 F 05/11/19 15:13 Pulse 96 05/11/19 15:13 Resp 20 05/11/19 15:13 BP 142/98 H 05/11/19 15:13 Pulse Ox 97 05/11/19 15:13 - Re-Assessments/Exams Free Text/Narrative Re-Assessment/Exam: 05/11/19 15:39 Presents to the ED for evaluation of right ear pain. Upon physical examination , there is some drainage coming from the right ear, and it appears she has in external otitis media. Patient will be put on Ciprodex eardrops, and amoxicillin oral, due to her diabetic status. Patient was mildly febrile with a temperature of 99.2 F. Staff will be advised to give her some Tylenol or ibuprofen every 6 hours as needed for further fever/pain relief. Departure - Departure Time of Disposition: 15:39 Disposition: Home, Self-Care 01 Condition: Good Clinical Impression: Otitis externa Qualifiers: Otitis externa type: unspecified type Chronicity: acute Laterality: right Qualified Code(s): H60.501 - Unspecified acute noninfective otitis externa, right ear - Discharge Information *PRESCRIPTION DRUG MONITORING PROGRAM REVIEWED*: No *COPY OF PRESCRIPTION DRUG MONITORING REPORT IN PATIENT PHIL: No Prescriptions: Amoxicillin 875 mg PO BID #20 tab Ciprofloxacin/Dexamethasone [Ciprodex Otic Susp] 4 drop OT BID #1 bottle Instructions: Otitis Externa, [id number] Referrals: Kyle Dobbs MD [Primary Care Provider] - Forms: ED Department Discharge Additional Instructions: You were evaluated in the ER today regarding your right ear pain. Your physical exam demonstrated that you are suffering from a right external otitis media, which is an infection of the ear canal. Treatment for this is antibiotic eardrops, and oral antibiotics, as you are a diabetic. These medications were electronically prescribed to the [facility] pharmacy located near [facility], this pharmacy is only open from 12 to 4 PM today, you will need to go there during this timeframe to obtain this medication and take as prescribed. These medications will be needed for 10 days, recommend that you follow-up with your regular care provider after the medications have been given time to work, sometime at the end of this week would be appropriate for reevaluation. You may give Tylenol or ibuprofen every 6 hours as needed for further pain relief. Please return to the ER however if your symptoms change or worsen. Sepsis Event Note - Evaluation Sepsis Screening Result: No Definite Risk - Focused Exam Vital Signs: Vital Signs Temp Pulse Resp BP Pulse Ox 05/11/19 15:13 99.2 F 96 20 142/98 H 97 Date Exam was Performed: 05/11/19 Time Exam was Performed: 15:48
== END 2019-05-11 15:45 | disposition home or self-care (01) ==
LOC: JD.ED 14:59
CPT/HCPCS: 99282; 99283

== ENCOUNTER 2023-04-24 17:38 | Inpatient (IN) | payer MEDICARE, MEDICAID ==
[2023-04-24] MEDS ORDERED: Ondansetron 4 MG/2 ML SDV IVPUSH ONE ×2 (18:14→21:16)
[2023-04-24] MEDS ORDERED: Sodium Chloride 0.9% 10 ML Syringe FLUSH PRN (18:14)
[2023-04-24] MEDS: Sodium Chloride 0.9% 1,000 ML IV SCH ×2 (19:01→22:41)
[2023-04-24 20:00] LABS: BASOPHILS PERCENT AUTO 0.4 % (0.0-1.0); EOSINOPHILS ABSOLUTE AUTO 0.2 K/mm3 (0.0-0.4); EOSINOPHILS PERCENT AUTO 1.9 % (0.0-6.0); HEMATOCRIT 52.8 % (37.0-47.0); HEMOGLOBIN 17.3 gm/dl (12.0-16.0); IMMATURE GRAN ABSOLUTE AUTO 0.01 K/mm3 (0.00-0.05); IMMATURE GRAN PERCENT AUTO 0.1 % (0.0-0.4); LYMPHOCYTES ABSOLUTE AUTO 0.6 K/mm3 (1.0-4.8); LYMPHOCYTES PERCENT AUTO 6.9 % (24.0-44.0); MEAN CORPUSCULAR HEMOGLOBIN 27.9 pg (28.0-32.0); MEAN CORPUSCULAR HGB CONC 32.8 g/dl (32.0-36.0); MONOCYTES ABSOLUTE AUTO 0.8 K/mm3 (0.0-0.8); MONOCYTES PERCENT AUTO 10.1 % (0.0-8.0); NEUTROPHILS ABSOLUTE AUTO 6.7 K/mm3 (1.8-7.7); NEUTROPHILS PERCENT AUTO 80.6 % (41.0-71.0); PLATELET COUNT,PLT 120 K/mm3 (150-400); RED BLOOD CELL COUNT 6.21 M/mm3 (4.10-5.30)
[2023-04-24 20:25] LABS: A/G RATIO 0.9 (1-2); ALBUMIN 3.4 g/dl (3.4-5.0); BILIRUBIN TOTAL 0.4 mg/dL (0.2-1.0); BUN/CREATININE RATIO 21.8 (14-18); C-REACTIVE PROTEIN 2.5 mg/dL (<1.0); CALCIUM 9.6 mg/dL (8.5-10.1); CREATININE 1.1 mg/dL (0.55-1.02); EST CRCL DRUG DOSING (CG) 49.81 mL/min; PROTEIN TOTAL,TP 7.1 g/dl (6.4-8.2)
[2023-04-24] MEDS ORDERED: REMDESIVIR 200 MG in Sodium Chloride 0.9% 250 ML IV ONE (20:37)
[2023-04-24] MEDS ORDERED: Dexamethasone 4 MG/ML SDV IVPUSH ONE (20:41)
[2023-04-24] MEDS ORDERED: Ondansetron 4 MG/2 ML SDV ONE (21:15)
[2023-04-24] MEDS ORDERED: Sodium Chloride 0.9% 1,000 ML ONE (22:33)
[2023-04-24] MEDS: Potassium Chloride 10 MEQ in Premix Bag 1 BAG IV SCH (22:41)
[2023-04-25] MEDS: Potassium Chloride 10 MEQ in Premix Bag 1 BAG IV SCH ×4 (00:17→03:59)
[2023-04-25] MEDS ORDERED: Sodium Chloride 0.9% 1,000 ML IV ONE (05:02)
[2023-04-25] MEDS: Sodium Chloride 0.9% 1,000 ML IV SCH ×2 (05:03→06:32)
[2023-04-25 06:41] LABS: MEAN CORPUSCULAR HEMOGLOBIN 27.9 pg (28.0-32.0); MEAN CORPUSCULAR HGB CONC 31.4 g/dl (32.0-36.0); PLATELET COUNT,PLT 78 K/mm3 (150-400); RED BLOOD CELL COUNT 4.94 M/mm3 (4.10-5.30); WHITE BLOOD CELL COUNT,WBC 5.65 K/mm3 (3.9-11.3)
[2023-04-25 06:54] LABS: ANION GAP 14.7 (5-15); BUN/CREATININE RATIO 23.6 (14-18); CALCIUM 7.5 mg/dL (8.5-10.1); CREATININE 1.1 mg/dL (0.55-1.02); EST CRCL DRUG DOSING (CG) 49.81 mL/min; POTASSIUM,K 3.7 mEq/L (3.5-5.1)
[2023-04-25 07:01] LABS: HEMOGLOBIN 13.8 gm/dl (12.0-16.0); MEAN CORPUSCULAR VOLUME 89.1 fl (83.0-99.0)
[2023-04-25] MEDS ORDERED: Albuterol 0.083% 2.5 MG/3 ML Neb Soln NEB PRN (08:16)
[2023-04-25] MEDS ORDERED: Acetaminophen 325 MG Tab PO PRN (08:16)
[2023-04-25] MEDS ORDERED: Albuterol/Ipratropium 3.0-0.5 MG/3 ML Neb Soln NEB PRN (08:16)
[2023-04-25] MEDS ORDERED: Sennosides/Docusate Sodium 50-8.6 MG Tab PO SCH (09:00)
[2023-04-25] MEDS ORDERED: Non-Formulary Medication 1 Each (Olopatadine 2.5 ML Bottle) EYEBOTH SCH (09:00)
[2023-04-25] MEDS: levETIRAcetam 500 MG Tab PO SCH ×2 (09:13→21:03)
[2023-04-25] MEDS: Dexamethasone 6 MG TABLET PO SCH (09:15)
[2023-04-25] MEDS: Sodium Bicarbonate 650 MG Tab PO SCH (09:15)
[2023-04-25] MEDS: Ferrous Sulfate 324 MG Tab.EC PO SCH (09:15)
[2023-04-25] MEDS: Famotidine 20 MG Tab PO SCH (09:16)
[2023-04-25] MEDS: Metoprolol Succinate 25 MG Tab.ER PO SCH (09:16)
[2023-04-25] MEDS: Calcium Polycarbophil 625 MG Tab PO SCH ×2 (09:18→21:15)
[2023-04-25] MEDS: Insulin Glargine,Human Rec. Analog 100 Units/ML 3 ML Pen SUBCUT SCH (09:33)
[2023-04-25] MEDS ORDERED: Magnesium Sulfate/Water 2 GM in Premix Bag 1 BAG IV ONE (10:00)
[2023-04-25] MEDS: Insulin Lispro 100 Unit/ML 3 ML KwikPen SUBCUT SCH ×3 (11:42→20:58)
[2023-04-25] MEDS: Lubiprostone 24 MCG Cap PO SCH ×2 (17:23→17:55)
[2023-04-25] MEDS: Rosuvastatin 10 MG Tab PO SCH (21:02)
[2023-04-25] MEDS: REMDESIVIR 100 MG in Sodium Chloride 0.9% 250 ML IV SCH (21:05)
[2023-04-26] MEDS: Ondansetron 4 MG/2 ML SDV IV PRN ×2 (06:08→16:51)
[2023-04-26 06:28] LABS: BASOPHILS PERCENT AUTO 0.2 % (0.0-1.0); EOSINOPHILS PERCENT AUTO 0.2 % (0.0-6.0); HEMATOCRIT 43.9 % (37.0-47.0); IMMATURE GRAN ABSOLUTE AUTO 0.01 K/mm3 (0.00-0.05); IMMATURE GRAN PERCENT AUTO 0.2 % (0.0-0.4); LYMPHOCYTES ABSOLUTE AUTO 0.7 K/mm3 (1.0-4.8); LYMPHOCYTES PERCENT AUTO 16.4 % (24.0-44.0); MEAN CORPUSCULAR HEMOGLOBIN 27.8 pg (28.0-32.0); MEAN CORPUSCULAR HGB CONC 31.9 g/dl (32.0-36.0); MEAN CORPUSCULAR VOLUME 87.3 fl (83.0-99.0); MEAN PLATELET VOLUME 11.4 fl (9.4-12.3); MONOCYTES ABSOLUTE AUTO 0.5 K/mm3 (0.0-0.8); MONOCYTES PERCENT AUTO 11.5 % (0.0-8.0); NEUTROPHILS ABSOLUTE AUTO 3.2 K/mm3 (1.8-7.7); NEUTROPHILS PERCENT AUTO 71.5 % (41.0-71.0); PLATELET COUNT,PLT 86 K/mm3 (150-400); RED BLOOD CELL COUNT 5.03 M/mm3 (4.10-5.30); WHITE BLOOD CELL COUNT,WBC 4.51 K/mm3 (3.9-11.3)
[2023-04-26 07:18] LABS: SLIDE REVIEW ABNORMAL SMEAR
[2023-04-26] MEDS: Lubiprostone 24 MCG Cap PO SCH ×2 (07:32→16:55)
[2023-04-26 07:45] LABS: A/G RATIO 0.9 (1-2); ALBUMIN 2.7 g/dl (3.4-5.0); ANION GAP 10.9 (5-15); BILIRUBIN TOTAL 0.2 mg/dL (0.2-1.0); BUN/CREATININE RATIO 21.1 (14-18); C-REACTIVE PROTEIN 11.4 mg/dL (<1.0); CALCIUM 7.8 mg/dL (8.5-10.1); CREATININE 0.9 mg/dL (0.55-1.02); EST CRCL DRUG DOSING (CG) 60.88 mL/min; MAGNESIUM 2.1 mg/dL (1.8-2.4); POTASSIUM,K 3.9 mEq/L (3.5-5.1); PROTEIN TOTAL,TP 5.8 g/dl (6.4-8.2)
[2023-04-26] MEDS: Insulin Glargine,Human Rec. Analog 100 Units/ML 3 ML Pen SUBCUT SCH (08:30)
[2023-04-26] MEDS: Insulin Lispro 100 Unit/ML 3 ML KwikPen SUBCUT SCH ×4 (08:33→21:03)
[2023-04-26] MEDS: Calcium Polycarbophil 625 MG Tab PO SCH ×3 (08:34→21:12)
[2023-04-26] MEDS: Dexamethasone 6 MG TABLET PO SCH (08:34)
[2023-04-26] MEDS: Famotidine 20 MG Tab PO SCH (08:34)
[2023-04-26] MEDS: Sodium Bicarbonate 650 MG Tab PO SCH ×2 (08:34→08:46)
[2023-04-26] MEDS: levETIRAcetam 500 MG Tab PO SCH ×2 (08:34→21:11)
[2023-04-26] MEDS: Ferrous Sulfate 324 MG Tab.EC PO SCH ×3 (08:34→09:00)
[2023-04-26] MEDS: Metoprolol Succinate 25 MG Tab.ER PO SCH (08:35)
[2023-04-26] MEDS ORDERED: Sodium Chloride 0.45% 1,000 ML IV SCH (09:00)
[2023-04-26] MEDS: REMDESIVIR 100 MG in Sodium Chloride 0.9% 250 ML IV SCH (20:59)
[2023-04-26] MEDS: Rosuvastatin 10 MG Tab PO SCH (21:10)
[2023-04-27 06:26] LABS: BASOPHILS PERCENT AUTO 0.2 % (0.0-1.0); HEMATOCRIT 40.7 % (37.0-47.0); IMMATURE GRAN ABSOLUTE AUTO 0.01 K/mm3 (0.00-0.05); IMMATURE GRAN PERCENT AUTO 0.2 % (0.0-0.4); LYMPHOCYTES ABSOLUTE AUTO 1.2 K/mm3 (1.0-4.8); LYMPHOCYTES PERCENT AUTO 20.1 % (24.0-44.0); MEAN CORPUSCULAR HEMOGLOBIN 26.9 pg (28.0-32.0); MEAN CORPUSCULAR HGB CONC 31.9 g/dl (32.0-36.0); MEAN CORPUSCULAR VOLUME 84.3 fl (83.0-99.0); MONOCYTES ABSOLUTE AUTO 0.8 K/mm3 (0.0-0.8); MONOCYTES PERCENT AUTO 13.2 % (0.0-8.0); NEUTROPHILS ABSOLUTE AUTO 3.9 K/mm3 (1.8-7.7); NEUTROPHILS PERCENT AUTO 66.3 % (41.0-71.0); PLATELET COUNT,PLT 83 K/mm3 (150-400); RED BLOOD CELL COUNT 4.83 M/mm3 (4.10-5.30); WHITE BLOOD CELL COUNT,WBC 5.82 K/mm3 (3.9-11.3)
[2023-04-27 06:53] LABS: A/G RATIO 0.9 (1-2); ALBUMIN 2.6 g/dl (3.4-5.0); ANION GAP 10.9 (5-15); BILIRUBIN TOTAL 0.3 mg/dL (0.2-1.0); BUN/CREATININE RATIO 16.7 (14-18); C-REACTIVE PROTEIN 6.4 mg/dL (<1.0); CALCIUM 8.5 mg/dL (8.5-10.1); CREATININE 0.9 mg/dL (0.55-1.02); EST CRCL DRUG DOSING (CG) 60.88 mL/min; MAGNESIUM 1.8 mg/dL (1.8-2.4); POTASSIUM,K 3.9 mEq/L (3.5-5.1); PROTEIN TOTAL,TP 5.6 g/dl (6.4-8.2)
[2023-04-27 07:07] LABS: SLIDE REVIEW ABNORMAL SMEAR
[2023-04-27] MEDS: Lubiprostone 24 MCG Cap PO SCH (07:17)
[2023-04-27] MEDS: Insulin Lispro 100 Unit/ML 3 ML KwikPen SUBCUT SCH (08:50)
[2023-04-27] MEDS: Metoprolol Succinate 25 MG Tab.ER PO SCH (08:50)
[2023-04-27] MEDS: Dexamethasone 6 MG TABLET PO SCH (08:50)
[2023-04-27] MEDS: Famotidine 20 MG Tab PO SCH (08:51)
[2023-04-27] MEDS: Calcium Polycarbophil 625 MG Tab PO SCH (08:51)
[2023-04-27] MEDS: levETIRAcetam 500 MG Tab PO SCH (08:51)
[2023-04-27] MEDS: Sodium Bicarbonate 650 MG Tab PO SCH (08:52)
[2023-04-27] MEDS: Ferrous Sulfate 324 MG Tab.EC PO SCH (08:52)
[2023-04-27 08:59] VITALS: BP 142/101; PULSE 88
[2023-04-27] MEDS ORDERED: Insulin Glargine,Human Rec. Analog 100 Units/ML 3 ML Pen SUBCUT SCH (09:00)
[2023-04-27] MEDS ORDERED: LUBIPROSTONE 24 MCG PO SCH (17:00)
== END 2023-04-27 15:10 | disposition other institution (70) | DRG 682 ==
LOC: JD.ED 17:38 → JD.MS 22:16
PROVIDERS: ADMIT Internal Medicine; ATTEND Internal Medicine
PROC: 3E0333Z Introduction of Anti-inflammatory into Peripheral Vein, Percutaneous Approach (ICD-10-PCS; principal; 2023-04-24)
PROC: XW033E5 Introduction of Remdesivir Anti-infective into Peripheral Vein, Percutaneous Approach, New Technology Group 5 (ICD-10-PCS; 2023-04-24)
DX: N17.9 Acute kidney failure, unspecified (principal); U07.1 COVID-19; E87.6 Hypokalemia; I10 Essential (primary) hypertension; I95.9 Hypotension, unspecified; D69.6 Thrombocytopenia, unspecified; Z66 Do not resuscitate; E83.42 Hypomagnesemia; R62.50 Unspecified lack of expected normal physiological development in childhood; J45.909 Unspecified asthma, uncomplicated; E86.0 Dehydration; Z96.22 Myringotomy tube(s) status; E11.9 Type 2 diabetes mellitus without complications; Z79.4 Long term (current) use of insulin; Z87.39 Personal history of other diseases of the musculoskeletal system and connective tissue; Z87.898 Personal history of other specified conditions; Z99.3 Dependence on wheelchair; Z79.899 Other long term (current) drug therapy; Z88.5 Allergy status to narcotic agent; Z88.8 Allergy status to other drugs, medicaments and biological substances; Z98.890 Other specified postprocedural states
CPT/HCPCS: 36415; 71045; 71045-26; 80048; 80053; 82947; 83605; 83735; 85025; 85027; 86140; 94667; 94760; 94761; 94762; 96361; 96365; 96375; 96376; 99285; 99285-25; A9270-GY; J0248; J1100; J1815; J1815-GY; J2405; J3475; J3480; J3490; J7030; J7050; J8540

== ENCOUNTER 2023-04-28 09:17 | Emergency (ER) | payer MEDICARE, MEDICAID ==
[2023-04-28] MEDS ORDERED: Ondansetron 4 MG Tab.DIS PO ONE (10:02)
[2023-04-28 10:44] VITALS: BP 142/95; PULSE 63
== END 2023-04-28 10:43 | disposition home or self-care (01) ==
LOC: JD.ED 09:17
DX: I10 Essential (primary) hypertension (principal); F79 Unspecified intellectual disabilities; E11.9 Type 2 diabetes mellitus without complications; J45.909 Unspecified asthma, uncomplicated; Z86.16 Personal history of COVID-19; Z79.899 Other long term (current) drug therapy; Z79.4 Long term (current) use of insulin; Z88.5 Allergy status to narcotic agent; Z91.048 Other nonmedicinal substance allergy status
CPT/HCPCS: 99283; A9270

== ENCOUNTER 2023-05-03 13:14 | Emergency (ER) | payer MEDICARE, MEDICAID ==
[2023-05-03] MEDS ORDERED: cefTRIAXone 2 GM in Sodium Chloride 0.9% 100 ML IV ONE (15:30)
[2023-05-03] MEDS ORDERED: Doxycycline Monohydrate 100 MG Cap PO ONE (15:51)
[2023-05-03] MEDS ORDERED: Albuterol 0.083% 2.5 MG/3 ML Neb Soln NEB ONE (15:57)
[2023-05-03 17:13] VITALS: BP 106/61; PULSE 59
== END 2023-05-03 17:10 | disposition home or self-care (01) ==
LOC: JD.ED 13:14
DX: J18.9 Pneumonia, unspecified organism (principal); I10 Essential (primary) hypertension; J45.909 Unspecified asthma, uncomplicated; E10.9 Type 1 diabetes mellitus without complications; Z86.16 Personal history of COVID-19; Z79.899 Other long term (current) drug therapy; Z88.5 Allergy status to narcotic agent; Z91.048 Other nonmedicinal substance allergy status
CPT/HCPCS: 94640; 96365; 99284; A9270; J0696; J3490; J7620-GY

== ENCOUNTER 2024-03-17 20:37 | Emergency (ER) | payer MEDICARE, MEDICAID ==
[2024-03-17] MEDS ORDERED: Sodium Chloride 0.9% 10 ML Syringe FLUSH PRN (20:57)
[2024-03-17] MEDS: Sodium Chloride 0.9% 1,000 ML IV ONE (21:14)
[2024-03-17 21:24] LABS: HEMATOCRIT 43.9 % (37.0-47.0); HEMOGLOBIN 14.3 gm/dl (12.0-16.0); MEAN CORPUSCULAR HEMOGLOBIN 29.4 pg (28.0-32.0); MEAN CORPUSCULAR HGB CONC 32.6 g/dl (32.0-36.0); MEAN CORPUSCULAR VOLUME 90.1 fl (83.0-99.0); MEAN PLATELET VOLUME 12.4 fl (9.4-12.3); PLATELET COUNT,PLT 108 K/mm3 (150-400); RED BLOOD CELL COUNT 4.87 M/mm3 (4.10-5.30); WHITE BLOOD CELL COUNT,WBC 11.17 K/mm3 (3.9-11.3)
[2024-03-17 21:38] LABS: INR 1.11; PROTHROMBIN TIME 11.7 SECONDS (9.7-12.0)
[2024-03-17 21:48] LABS: LACTIC ACID 1.3 mmol/L (0.4-2.0)
[2024-03-17 21:51] LABS: BAND PERCENT MAN 1 % (0-10); BASOPHILS PERCENT MAN 0 (0.1-1.2); EOSINOPHILS PERCENT MAN 1 % (0.7-5.8); LYMPHOCYTES % ATYPICAL MANUAL 0 %; LYMPHOCYTES PERCENT MAN 8 % (20-40); MONOCYTES PERCENT MAN 7 % (2-10)
[2024-03-17 21:52] LABS: PLATELET COUNT ESTIMATE DECREASED
[2024-03-17 22:02] LABS: CORONAVIRUS COVID-19 NAA NEGATIVE (NEGATIVE); INFLUENZA A NAA NEGATIVE (NEGATIVE); RESPIRATORY SYNCYTIAL VIR NAA NEGATIVE (NEGATIVE)
[2024-03-17 22:25] LABS: APPEARANCE,URINE CLEAR (Clear); BILIRUBIN,URINE NEGATIVE (Negative); COLOR,URINE YELLOW (Yellow); GLUCOSE,URINE NEGATIVE (Negative); KETONES,URINE NEGATIVE (Negative); LEUKOCYTE ESTERASE,URINE TRACE (Negative); NITRITE,URINE POSITIVE (Negative); OCCULT BLOOD,URINE 2+ (Negative); PROTEIN,URINE 1+ (Negative); UROBILINOGEN,URINE 0.2 (0.2-1.0)
[2024-03-17 22:44] LABS: BACTERIA,URINE MANY /hpf (FEW); MUCUS,URINE FEW /hpf (FEW); RBC,URINE 0-5 /hpf (0-5); SQUAMOUS EPITHELIAL CELLS,UR 0-5 /hpf (0-5)
[2024-03-17 22:47] LABS: A/G RATIO 0.8 (1-2); ALBUMIN 2.9 g/dl (3.4-5.0); ANION GAP 10.3 (5-15); BILIRUBIN TOTAL 0.3 mg/dL (0.2-1.0); BUN/CREATININE RATIO 27.8 (14-18); C-REACTIVE PROTEIN 8.76 mg/dL (<0.30); CREATININE 0.9 mg/dL (0.55-1.02); EST CRCL DRUG DOSING (CG) 60.28 mL/min; MAGNESIUM 1.6 mg/dL (1.8-2.4); POTASSIUM,K 3.3 mEq/L (3.5-5.1); PROTEIN TOTAL,TP 6.4 g/dl (6.4-8.2)
[2024-03-17] MEDS: cefTRIAXone 2 GM in Sodium Chloride 0.9% 100 ML IV ONE (23:14)
[2024-03-17] MEDS: Fluconazole 150 MG Tab PO ONE (23:16)
[2024-03-18 00:01] VITALS: BP 132/83; PULSE 96
== END 2024-03-18 00:01 | disposition home or self-care (01) ==
LOC: JD.ED 20:37
DX: R56.9 Unspecified convulsions (principal); N30.00 Acute cystitis without hematuria; I10 Essential (primary) hypertension; J45.909 Unspecified asthma, uncomplicated; Z86.16 Personal history of COVID-19; Z79.4 Long term (current) use of insulin; Z79.899 Other long term (current) drug therapy; Z88.5 Allergy status to narcotic agent; Z91.048 Other nonmedicinal substance allergy status
CPT/HCPCS: 0241U; 36415; 70450; 71045; 80053; 81001; 83605; 83735; 85007; 85027; 85610; 86140; 87040; 96361; 96365; 99285; A9270; J0696; J3490; J7030; 99284

== ENCOUNTER 2025-03-27 14:25 | Inpatient (IN) | payer MEDICARE, MEDICAID ==
[2025-03-27] MEDS: Lactated Ringers 250 ML IV ONE (15:30)
[2025-03-27] MEDS ORDERED: Sodium Chloride 0.9% 10 ML Syringe FLUSH PRN (15:31)
[2025-03-27 15:33] LABS: BASOPHILS ABSOLUTE AUTO 0.1 K/mm3 (0.0-0.2); BASOPHILS PERCENT AUTO 0.9 % (0.0-1.0); EOSINOPHILS ABSOLUTE AUTO 0.0 K/mm3 (0.0-0.4); EOSINOPHILS PERCENT AUTO 0.4 % (0.0-6.0); IMMATURE GRAN ABSOLUTE AUTO 0.03 K/mm3 (0.00-0.05); IMMATURE GRAN PERCENT AUTO 0.4 % (0.0-0.4); LYMPHOCYTES ABSOLUTE AUTO 0.8 K/mm3 (1.0-4.8); LYMPHOCYTES PERCENT AUTO 11.0 % (24.0-44.0); MEAN PLATELET VOLUME 11.2 fl (9.4-12.3); MONOCYTES ABSOLUTE AUTO 0.5 K/mm3 (0.0-0.8); MONOCYTES PERCENT AUTO 7.1 % (0.0-8.0); NEUTROPHILS ABSOLUTE AUTO 6.1 K/mm3 (1.8-7.7); NEUTROPHILS PERCENT AUTO 80.2 % (41.0-71.0); NRBC ABSOLUTE 0.00 (0.00-0.02); NRBC PERCENT 0.0 % (0.0-0.2); PLATELET COUNT,PLT 190 K/mm3 (150-400); RED BLOOD CELL COUNT 5.72 M/mm3 (4.10-5.30); WHITE BLOOD CELL COUNT,WBC 7.62 K/mm3 (3.9-11.3)
[2025-03-27] MEDS: Sodium Chloride 0.9% 10 ML Syringe FLUSH PRN (15:46)
[2025-03-27] MEDS: Iopamidol 612 MG/ML 100 ML Bottle IVPUSH ONE (15:47)
[2025-03-27 16:08] LABS: A/G RATIO 0.8 (1-2); ALANINE AMINOTRANSFERASE,ALT 17 U/L (14-59); ASPARTATE AMNIOTRANSFERASE,AST 23 U/L (15-37); BILIRUBIN TOTAL 0.4 mg/dL (0.2-1.0); CHLORIDE,CL 104 mEq/L (98-107); GLUCOSE RANDOM 160 mg/dL (70-99); POTASSIUM,K 4.5 mEq/L (3.5-5.1); PROTEIN TOTAL,TP 7.4 g/dl (6.4-8.2); SODIUM,NA 141 mEq/L (136-145)
[2025-03-27 16:21] LABS: LACTIC ACID 2.6 mmol/L (0.4-2.0)
[2025-03-27 16:26] LABS: BLOOD UREA NITROGEN,BUN 63 mg/dL (7-18); CARBON DIOXIDE,CO2 20 mEq/L (21-32); CREATININE 2.2 mg/dL (0.55-1.02); ESTIMATED GFR 28 mL/min (>60)
[2025-03-27] MEDS: Norepinephrine Bit/0.9% NaCl 4 MG/250 ML BAG IV SCH (16:49)
[2025-03-27 17:11] LABS: APPEARANCE,URINE CLEAR (Clear); GLUCOSE,URINE NEGATIVE (Negative); OCCULT BLOOD,URINE NEGATIVE (Negative)
[2025-03-27] MEDS: Benzocaine 20% Topical Spray UD MUCMEM ONE (17:11)
[2025-03-27 17:40] LABS: EPITHELIAL CELLS,URINE 0-5 /hpf (0-5); FINE GRANULAR CASTS,URINE 0-5 /lpf (0-5)
[2025-03-27] MEDS: Heparin Sodium 5,000 Units/ML Vial SUBCUT ONE (18:17)
[2025-03-27] MEDS ORDERED: propofoL 1,000 MG/100 ML 100 ML ONE (18:48)
[2025-03-27] MEDS ORDERED: Ketamine HCL/NACL, ISO-OSM 50 MG/5 ML Syringe ONE (18:52)
[2025-03-27] MEDS ORDERED: Midazolam 1 MG/ML 2 ML SDV ONE ×2 (18:52→20:33)
[2025-03-27] MEDS ORDERED: fentaNYL 100 MCG/2 ML SDV ONE ×3 (18:53→21:23)
[2025-03-27] MEDS ORDERED: Lactated Ringers 1,000 ML IV ONE (20:15)
[2025-03-27] MEDS ORDERED: Phenylephrine 1% 10 MG/ML SDV ONE (20:57)
[2025-03-27] MEDS ORDERED: fentaNYL 100 MCG/2 ML SDV IVPUSH PRN (22:16)
[2025-03-27 23:06] LABS: MEAN PLATELET VOLUME 11.0 fl (9.4-12.3); NRBC ABSOLUTE 0.00 (0.00-0.02); NRBC PERCENT 0.0 % (0.0-0.2); PLATELET COUNT,PLT 155 K/mm3 (150-400); RED BLOOD CELL COUNT 4.78 M/mm3 (4.10-5.30); WHITE BLOOD CELL COUNT,WBC 3.32 K/mm3 (3.9-11.3)
[2025-03-27 23:22] LABS: BLOOD UREA NITROGEN,BUN 62 mg/dL (7-18); CARBON DIOXIDE,CO2 20 mEq/L (21-32); CHLORIDE,CL 111 mEq/L (98-107); CREATININE 1.9 mg/dL (0.55-1.02); ESTIMATED GFR 34 mL/min (>60); GLUCOSE RANDOM 162 mg/dL (70-99); POTASSIUM,K 4.0 mEq/L (3.5-5.1); SODIUM,NA 144 mEq/L (136-145)
[2025-03-27] MEDS: Lactated Ringers 1,000 ML IV SCH (23:35)
[2025-03-27] MEDS: Metoprolol Tartrate 5 MG/5 ML SDV IVPUSH ONE (23:43)
[2025-03-28] MEDS: Benzocaine 20% Topical Spray UD MUCMEM ONE (00:26)
[2025-03-28] MEDS: Heparin Sodium 5,000 Units/ML Vial SUBCUT SCH (00:30)
[2025-03-28] MEDS: Ondansetron 4 MG/2 ML SDV IVPUSH PRN (01:48)
[2025-03-28] MEDS: Magnesium Sulfate 2 GM/50 mL 2 GM in Premix Bag 1 BAG IV ONE (02:20)
[2025-03-28 05:53] LABS: BASOPHILS ABSOLUTE AUTO 0.0 K/mm3 (0.0-0.2); BASOPHILS PERCENT AUTO 0.9 % (0.0-1.0); EOSINOPHILS ABSOLUTE AUTO 0.0 K/mm3 (0.0-0.4); EOSINOPHILS PERCENT AUTO 0.0 % (0.0-6.0); IMMATURE GRAN ABSOLUTE AUTO 0.03 K/mm3 (0.00-0.05); IMMATURE GRAN PERCENT AUTO 0.9 % (0.0-0.4); LYMPHOCYTES ABSOLUTE AUTO 0.6 K/mm3 (1.0-4.8); LYMPHOCYTES PERCENT AUTO 17.9 % (24.0-44.0); MEAN PLATELET VOLUME 12.0 fl (9.4-12.3); MONOCYTES ABSOLUTE AUTO 0.3 K/mm3 (0.0-0.8); MONOCYTES PERCENT AUTO 7.9 % (0.0-8.0); NEUTROPHILS ABSOLUTE AUTO 2.4 K/mm3 (1.8-7.7); NEUTROPHILS PERCENT AUTO 72.4 % (41.0-71.0); NRBC ABSOLUTE 0.00 (0.00-0.02); NRBC PERCENT 0.0 % (0.0-0.2); PLATELET COUNT,PLT 143 K/mm3 (150-400); RED BLOOD CELL COUNT 4.86 M/mm3 (4.10-5.30); WHITE BLOOD CELL COUNT,WBC 3.29 K/mm3 (3.9-11.3)
[2025-03-28 06:03] LABS: BLOOD UREA NITROGEN,BUN 58.0 mg/dL (7-18); CARBON DIOXIDE,CO2 24.0 mEq/L (21-32); CHLORIDE,CL 110.0 mEq/L (98-107); CREATININE 2.0 mg/dL (0.55-1.02); EST CRCL DRUG DOSING (CG) 29.32 mL/min; ESTIMATED GFR 32.0 mL/min (>60); GLUCOSE RANDOM 105.0 mg/dL (70-99); POTASSIUM,K 3.0 mEq/L (3.5-5.1); SODIUM,NA 145.0 mEq/L (136-145)
[2025-03-28 06:47] LABS: APPEARANCE,URINE SLT CLOUDY (Clear); GLUCOSE,URINE NEGATIVE (Negative); OCCULT BLOOD,URINE 2+ (Negative)
[2025-03-28 06:55] LABS: BASE EXCESS ARTERIAL -7.0 (-2-2.0); BICARBONATE,ARTERIAL 18.6 meq/L (22.0-26.0); O2 SATURATION ARTERIAL 98.5 % (96.0-97.0); PCO2 ARTERIAL 37.0 mmHg (35.0-45.0); PO2 ARTERIAL 111.0 mmHg (80.0-100.0)
[2025-03-28] MEDS: Linezolid 600 MG/300 ML 600 MG in Premix Bag 1 BAG IV SCH ×2 (09:49→09:57)
[2025-03-28] MEDS: Hydrocortisone Sodium Succinate 100 MG/2 ML SDV IVPUSH ONE (13:49)
[2025-03-28] MEDS: levETIRAcetam 500 MG/5 ML SDV IVPUSH SCH (13:52)
[2025-03-28] MEDS: SODIUM CHLORIDE 0.9% IV SCH (14:33)
[2025-03-28] MEDS: VASOPRESSIN IV SCH (14:33)
[2025-03-28 18:25] LABS: MEAN PLATELET VOLUME 12.2 fl (9.4-12.3); NRBC ABSOLUTE 0.00 (0.00-0.02); NRBC PERCENT 0.0 % (0.0-0.2); PLATELET COUNT,PLT 82 K/mm3 (150-400); RED BLOOD CELL COUNT 3.93 M/mm3 (4.10-5.30); WHITE BLOOD CELL COUNT,WBC 14.63 K/mm3 (3.9-11.3)
[2025-03-28 18:25] LABS: BICARBONATE,ARTERIAL 17.2 meq/L (22.0-26.0); O2 SATURATION ARTERIAL 98.2 % (96.0-97.0); PCO2 ARTERIAL 35.0 mmHg (35.0-45.0); PO2 ARTERIAL 96.0 mmHg (80.0-100.0)
[2025-03-28 18:26] LABS: BASE EXCESS ARTERIAL -8.4 (-2-2.0)
[2025-03-28 18:36] LABS: BLOOD UREA NITROGEN,BUN 42.0 mg/dL (7-18); CARBON DIOXIDE,CO2 19.0 mEq/L (21-32); CHLORIDE,CL 118.0 mEq/L (98-107); CREATININE 1.6 mg/dL (0.55-1.02); EST CRCL DRUG DOSING (CG) 36.65 mL/min; ESTIMATED GFR 42.0 mL/min (>60); GLUCOSE RANDOM 198.0 mg/dL (70-99); POTASSIUM,K 3.9 mEq/L (3.5-5.1); SODIUM,NA 149.0 mEq/L (136-145)
[2025-03-28] MEDS ORDERED: LORazepam 2 MG/ML SDV IVPUSH PRN (18:38)
[2025-03-28] MEDS: LORazepam 2 MG/ML SDV IVPUSH PRN (19:37)
[2025-03-28] MEDS: Hydrocortisone Sodium Succinate 100 MG/2 ML SDV IVPUSH SCH (19:41)
[2025-03-29 06:08] LABS: BASOPHILS ABSOLUTE AUTO 0.1 K/mm3 (0.0-0.2); BASOPHILS PERCENT AUTO 0.4 % (0.0-1.0); EOSINOPHILS ABSOLUTE AUTO 0.0 K/mm3 (0.0-0.4); EOSINOPHILS PERCENT AUTO 0.0 % (0.0-6.0); IMMATURE GRAN ABSOLUTE AUTO 0.10 K/mm3 (0.00-0.05); IMMATURE GRAN PERCENT AUTO 0.6 % (0.0-0.4); LYMPHOCYTES ABSOLUTE AUTO 0.7 K/mm3 (1.0-4.8); LYMPHOCYTES PERCENT AUTO 4.2 % (24.0-44.0); MEAN PLATELET VOLUME 11.7 fl (9.4-12.3); MONOCYTES ABSOLUTE AUTO 0.5 K/mm3 (0.0-0.8); MONOCYTES PERCENT AUTO 3.3 % (0.0-8.0); NEUTROPHILS ABSOLUTE AUTO 14.7 K/mm3 (1.8-7.7); NEUTROPHILS PERCENT AUTO 91.5 % (41.0-71.0); NRBC ABSOLUTE 0.03 (0.00-0.02); NRBC PERCENT 0.2 % (0.0-0.2); PLATELET COUNT,PLT 61 K/mm3 (150-400); RED BLOOD CELL COUNT 3.55 M/mm3 (4.10-5.30); WHITE BLOOD CELL COUNT,WBC 16.05 K/mm3 (3.9-11.3)
[2025-03-29 06:44] LABS: A/G RATIO 0.5 (1-2); ALANINE AMINOTRANSFERASE,ALT 47 U/L (14-59); ASPARTATE AMNIOTRANSFERASE,AST 106 U/L (15-37); BILIRUBIN TOTAL 0.3 mg/dL (0.2-1.0); BLOOD UREA NITROGEN,BUN 33 mg/dL (7-18); CARBON DIOXIDE,CO2 23 mEq/L (21-32); CHLORIDE,CL 118 mEq/L (98-107); CREATININE 1.4 mg/dL (0.55-1.02); EST CRCL DRUG DOSING (CG) 42.25 mL/min; ESTIMATED GFR 49 mL/min (>60); GLUCOSE RANDOM 163 mg/dL (70-99); POTASSIUM,K 3.4 mEq/L (3.5-5.1); PROTEIN TOTAL,TP 4.8 g/dl (6.4-8.2); SODIUM,NA 151 mEq/L (136-145)
[2025-03-29] MEDS: D5 1/2 NS w/ 20 mEq/L KCl 1,000 ML IV SCH (07:39)
[2025-03-29] MEDS ORDERED: 50% Dextrose in Water 50 ML Syringe IVPUSH PRN (08:05)
[2025-03-29] MEDS: Insulin Lispro 100 Unit/ML 3 ML KwikPen SUBCUT SCH (09:40)
[2025-03-29] MEDS: cefTRIAXone 1 GM in Water For Injection, Sterile 10 ML IVPUSH SCH (09:55)
[2025-03-29] MEDS: Pantoprazole 40 MG in Sodium Chloride 0.9% 10 ML IVPUSH SCH (09:55)
[2025-03-29] MEDS: metroNIDAZOLE/Normal Saline 500 MG in Premix Bag 1 BAG IV SCH (10:00)
[2025-03-29 18:36] LABS: BLOOD UREA NITROGEN,BUN 29.0 mg/dL (7-18); CARBON DIOXIDE,CO2 24.0 mEq/L (21-32); CHLORIDE,CL 120.0 mEq/L (98-107); CREATININE 1.4 mg/dL (0.55-1.02); EST CRCL DRUG DOSING (CG) 42.25 mL/min; ESTIMATED GFR 49.0 mL/min (>60); GLUCOSE RANDOM 188.0 mg/dL (70-99); POTASSIUM,K 4.2 mEq/L (3.5-5.1); SODIUM,NA 150.0 mEq/L (136-145)
[2025-03-29 18:40] LABS: TROPONIN I HIGH SENSITIVITY 431.0 pg/mL (<=51)
[2025-03-29] MEDS: Hydrocortisone Sodium Succinate 100 MG/2 ML SDV IVPUSH SCH (19:56)
[2025-03-30 05:43] LABS: BASOPHILS ABSOLUTE AUTO 0.0 K/mm3 (0.0-0.2); BASOPHILS PERCENT AUTO 0.2 % (0.0-1.0); EOSINOPHILS ABSOLUTE AUTO 0.0 K/mm3 (0.0-0.4); EOSINOPHILS PERCENT AUTO 0.0 % (0.0-6.0); IMMATURE GRAN ABSOLUTE AUTO 0.08 K/mm3 (0.00-0.05); IMMATURE GRAN PERCENT AUTO 0.6 % (0.0-0.4); LYMPHOCYTES ABSOLUTE AUTO 0.5 K/mm3 (1.0-4.8); LYMPHOCYTES PERCENT AUTO 3.5 % (24.0-44.0); MEAN PLATELET VOLUME 12.5 fl (9.4-12.3); MONOCYTES ABSOLUTE AUTO 0.5 K/mm3 (0.0-0.8); MONOCYTES PERCENT AUTO 3.6 % (0.0-8.0); NEUTROPHILS ABSOLUTE AUTO 12.5 K/mm3 (1.8-7.7); NEUTROPHILS PERCENT AUTO 92.1 % (41.0-71.0); NRBC ABSOLUTE 0.04 (0.00-0.02); NRBC PERCENT 0.3 % (0.0-0.2); PLATELET COUNT,PLT 60 K/mm3 (150-400); RED BLOOD CELL COUNT 3.29 M/mm3 (4.10-5.30); WHITE BLOOD CELL COUNT,WBC 13.52 K/mm3 (3.9-11.3)
[2025-03-30 07:11] LABS: A/G RATIO 0.6 (1-2); ALANINE AMINOTRANSFERASE,ALT 49.0 U/L (14-59); ASPARTATE AMNIOTRANSFERASE,AST 93.0 U/L (15-37); BILIRUBIN TOTAL 0.2 mg/dL (0.2-1.0); BLOOD UREA NITROGEN,BUN 23.0 mg/dL (7-18); CARBON DIOXIDE,CO2 22.0 mEq/L (21-32); CHLORIDE,CL 121.0 mEq/L (98-107); CREATININE 1.2 mg/dL (0.55-1.02); EST CRCL DRUG DOSING (CG) 49.29 mL/min; ESTIMATED GFR 59.0 mL/min (>60); GLUCOSE RANDOM 263.0 mg/dL (70-99); POTASSIUM,K 3.8 mEq/L (3.5-5.1); PROTEIN TOTAL,TP 4.7 g/dl (6.4-8.2); SODIUM,NA 151.0 mEq/L (136-145)
[2025-03-30] MEDS: Ketorolac 15 MG/ML SDV IVPUSH PRN (11:09)
[2025-03-30] MEDS: Ondansetron 4 MG/2 ML SDV IVPUSH PRN (15:23)
[2025-03-30] MEDS: Insulin Lispro 100 Unit/ML 3 ML KwikPen SUBCUT SCH (17:05)
[2025-03-30] MEDS: Carboxymethylcellulose Sodium 1% Ophth Gel 15 ML Bottle EYEBOTH PRN (18:35)
[2025-03-31 04:27] LABS: BASOPHILS ABSOLUTE AUTO 0.0 K/mm3 (0.0-0.2); BASOPHILS PERCENT AUTO 0.2 % (0.0-1.0); EOSINOPHILS ABSOLUTE AUTO 0.0 K/mm3 (0.0-0.4); EOSINOPHILS PERCENT AUTO 0.0 % (0.0-6.0); IMMATURE GRAN ABSOLUTE AUTO 0.05 K/mm3 (0.00-0.05); IMMATURE GRAN PERCENT AUTO 0.4 % (0.0-0.4); LYMPHOCYTES ABSOLUTE AUTO 0.9 K/mm3 (1.0-4.8); LYMPHOCYTES PERCENT AUTO 7.8 % (24.0-44.0); MEAN PLATELET VOLUME 13.0 fl (9.4-12.3); MONOCYTES ABSOLUTE AUTO 0.4 K/mm3 (0.0-0.8); MONOCYTES PERCENT AUTO 3.4 % (0.0-8.0); NEUTROPHILS ABSOLUTE AUTO 10.4 K/mm3 (1.8-7.7); NEUTROPHILS PERCENT AUTO 88.2 % (41.0-71.0); NRBC ABSOLUTE 0.00 (0.00-0.02); NRBC PERCENT 0.0 % (0.0-0.2); PLATELET COUNT,PLT 66 K/mm3 (150-400); RED BLOOD CELL COUNT 3.29 M/mm3 (4.10-5.30); WHITE BLOOD CELL COUNT,WBC 11.81 K/mm3 (3.9-11.3)
[2025-03-31 05:17] LABS: A/G RATIO 0.5 (1-2); ALANINE AMINOTRANSFERASE,ALT 39.0 U/L (14-59); ASPARTATE AMNIOTRANSFERASE,AST 52.0 U/L (15-37); BILIRUBIN TOTAL 0.3 mg/dL (0.2-1.0); BLOOD UREA NITROGEN,BUN 21.0 mg/dL (7-18); CARBON DIOXIDE,CO2 23.0 mEq/L (21-32); CHLORIDE,CL 119.0 mEq/L (98-107); CREATININE 1.2 mg/dL (0.55-1.02); EST CRCL DRUG DOSING (CG) 49.29 mL/min; ESTIMATED GFR 59.0 mL/min (>60); GLUCOSE RANDOM 203.0 mg/dL (70-99); POTASSIUM,K 3.3 mEq/L (3.5-5.1); PROTEIN TOTAL,TP 4.5 g/dl (6.4-8.2); SODIUM,NA 149.0 mEq/L (136-145)
[2025-03-31 11:46] LABS: KEPPRA 45.9 ug/mL (10.0-40.0)
[2025-03-31 14:30] LABS: TSH 1.431 uIU/mL (0.358-3.74)
[2025-03-31] MEDS: Ondansetron 4 MG/2 ML SDV IVPUSH PRN (21:34)
[2025-04-01 05:16] LABS: BASOPHILS ABSOLUTE AUTO 0.0 K/mm3 (0.0-0.2); BASOPHILS PERCENT AUTO 0.0 % (0.0-1.0); EOSINOPHILS ABSOLUTE AUTO 0.0 K/mm3 (0.0-0.4); EOSINOPHILS PERCENT AUTO 0.6 % (0.0-6.0); IMMATURE GRAN ABSOLUTE AUTO 0.02 K/mm3 (0.00-0.05); IMMATURE GRAN PERCENT AUTO 0.4 % (0.0-0.4); LYMPHOCYTES ABSOLUTE AUTO 0.9 K/mm3 (1.0-4.8); LYMPHOCYTES PERCENT AUTO 18.4 % (24.0-44.0); MEAN PLATELET VOLUME 12.8 fl (9.4-12.3); MONOCYTES ABSOLUTE AUTO 0.3 K/mm3 (0.0-0.8); MONOCYTES PERCENT AUTO 5.4 % (0.0-8.0); NEUTROPHILS ABSOLUTE AUTO 3.8 K/mm3 (1.8-7.7); NEUTROPHILS PERCENT AUTO 75.2 % (41.0-71.0); NRBC ABSOLUTE 0.00 (0.00-0.02); NRBC PERCENT 0.0 % (0.0-0.2); PLATELET COUNT,PLT 62 K/mm3 (150-400); RED BLOOD CELL COUNT 3.05 M/mm3 (4.10-5.30); WHITE BLOOD CELL COUNT,WBC 5.01 K/mm3 (3.9-11.3)
[2025-04-01 05:38] LABS: A/G RATIO 0.7 (1-2); ALANINE AMINOTRANSFERASE,ALT 41.0 U/L (14-59); ASPARTATE AMNIOTRANSFERASE,AST 60.0 U/L (15-37); BILIRUBIN TOTAL 0.2 mg/dL (0.2-1.0); BLOOD UREA NITROGEN,BUN 18.0 mg/dL (7-18); CARBON DIOXIDE,CO2 24.0 mEq/L (21-32); CHLORIDE,CL 119.0 mEq/L (98-107); CREATININE 1.0 mg/dL (0.55-1.02); EST CRCL DRUG DOSING (CG) 59.15 mL/min; ESTIMATED GFR 73.0 mL/min (>60); GLUCOSE RANDOM 198.0 mg/dL (70-99); POTASSIUM,K 3.2 mEq/L (3.5-5.1); PROTEIN TOTAL,TP 4.3 g/dl (6.4-8.2); SODIUM,NA 150.0 mEq/L (136-145)
[2025-04-01] MEDS: Ferrous Sulfate 324 MG Tab.EC PO SCH (08:18)
[2025-04-01] MEDS: Sennosides/Docusate Sodium 50-8.6 MG Tab PO SCH (08:53)
[2025-04-01] MEDS ORDERED: Sodium Chloride 0.9% 10 ML Syringe FLUSH PRN (09:45)
[2025-04-01] MEDS: levETIRAcetam 500 MG/5 ML SDV IVPUSH SCH (09:47)
[2025-04-01] MEDS: Iopamidol 612 MG/ML 100 ML Bottle IVPUSH ONE (10:09)
[2025-04-02 04:45] LABS: BASOPHILS ABSOLUTE AUTO 0.0 K/mm3 (0.0-0.2); BASOPHILS PERCENT AUTO 0.0 % (0.0-1.0); EOSINOPHILS ABSOLUTE AUTO 0.1 K/mm3 (0.0-0.4); EOSINOPHILS PERCENT AUTO 2.4 % (0.0-6.0); IMMATURE GRAN ABSOLUTE AUTO 0.04 K/mm3 (0.00-0.05); IMMATURE GRAN PERCENT AUTO 0.9 % (0.0-0.4); LYMPHOCYTES ABSOLUTE AUTO 0.7 K/mm3 (1.0-4.8); LYMPHOCYTES PERCENT AUTO 15.3 % (24.0-44.0); MEAN PLATELET VOLUME 11.2 fl (9.4-12.3); MONOCYTES ABSOLUTE AUTO 0.4 K/mm3 (0.0-0.8); MONOCYTES PERCENT AUTO 9.8 % (0.0-8.0); NEUTROPHILS ABSOLUTE AUTO 3.2 K/mm3 (1.8-7.7); NEUTROPHILS PERCENT AUTO 71.6 % (41.0-71.0); NRBC ABSOLUTE 0.00 (0.00-0.02); NRBC PERCENT 0.0 % (0.0-0.2); PLATELET COUNT,PLT 56 K/mm3 (150-400); RED BLOOD CELL COUNT 3.09 M/mm3 (4.10-5.30); WHITE BLOOD CELL COUNT,WBC 4.50 K/mm3 (3.9-11.3)
[2025-04-02 05:05] LABS: BLOOD UREA NITROGEN,BUN 9.0 mg/dL (7-18); CARBON DIOXIDE,CO2 29.0 mEq/L (21-32); CHLORIDE,CL 119.0 mEq/L (98-107); CREATININE 0.8 mg/dL (0.55-1.02); EST CRCL DRUG DOSING (CG) 73.93 mL/min; ESTIMATED GFR 95.0 mL/min (>60); GLUCOSE RANDOM 211.0 mg/dL (70-99); POTASSIUM,K 3.4 mEq/L (3.5-5.1); SODIUM,NA 154.0 mEq/L (136-145)
[2025-04-02] MEDS: Insulin Lispro 100 Unit/ML 3 ML KwikPen SUBCUT SCH (11:19)
[2025-04-02] MEDS ORDERED: Metoprolol Tartrate 5 MG/5 ML SDV IVPUSH PRN (11:29)
[2025-04-03 06:15] LABS: BASOPHILS ABSOLUTE AUTO 0.0 K/mm3 (0.0-0.2); BASOPHILS PERCENT AUTO 0.0 % (0.0-1.0); EOSINOPHILS ABSOLUTE AUTO 0.3 K/mm3 (0.0-0.4); EOSINOPHILS PERCENT AUTO 5.3 % (0.0-6.0); IMMATURE GRAN ABSOLUTE AUTO 0.08 K/mm3 (0.00-0.05); IMMATURE GRAN PERCENT AUTO 1.5 % (0.0-0.4); LYMPHOCYTES ABSOLUTE AUTO 0.9 K/mm3 (1.0-4.8); LYMPHOCYTES PERCENT AUTO 17.3 % (24.0-44.0); MEAN PLATELET VOLUME 11.7 fl (9.4-12.3); MONOCYTES ABSOLUTE AUTO 0.6 K/mm3 (0.0-0.8); MONOCYTES PERCENT AUTO 12.0 % (0.0-8.0); NEUTROPHILS ABSOLUTE AUTO 3.4 K/mm3 (1.8-7.7); NEUTROPHILS PERCENT AUTO 63.9 % (41.0-71.0); NRBC ABSOLUTE 0.00 (0.00-0.02); NRBC PERCENT 0.0 % (0.0-0.2); PLATELET COUNT,PLT 72 K/mm3 (150-400); RED BLOOD CELL COUNT 2.96 M/mm3 (4.10-5.30); WHITE BLOOD CELL COUNT,WBC 5.32 K/mm3 (3.9-11.3)
[2025-04-03 06:38] LABS: A/G RATIO 0.7 (1-2); ALANINE AMINOTRANSFERASE,ALT 56.0 U/L (14-59); ASPARTATE AMNIOTRANSFERASE,AST 74.0 U/L (15-37); BILIRUBIN TOTAL 0.3 mg/dL (0.2-1.0); BLOOD UREA NITROGEN,BUN 5.0 mg/dL (7-18); CARBON DIOXIDE,CO2 30.0 mEq/L (21-32); CHLORIDE,CL 110.0 mEq/L (98-107); CREATININE 0.8 mg/dL (0.55-1.02); EST CRCL DRUG DOSING (CG) 73.93 mL/min; ESTIMATED GFR 95.0 mL/min (>60); GLUCOSE RANDOM 207.0 mg/dL (70-99); POTASSIUM,K 3.4 mEq/L (3.5-5.1); PROTEIN TOTAL,TP 4.5 g/dl (6.4-8.2); SODIUM,NA 143.0 mEq/L (136-145)
[2025-04-03] MEDS: AA 5%/Calcium/D20W/Lytes 1,000 ML IV SCH (16:50)
[2025-04-04 06:24] LABS: BLOOD UREA NITROGEN,BUN 4.0 mg/dL (7-18); CARBON DIOXIDE,CO2 31.0 mEq/L (21-32); CHLORIDE,CL 110.0 mEq/L (98-107); CREATININE 0.7 mg/dL (0.55-1.02); GLUCOSE RANDOM 276.0 mg/dL (70-99); SODIUM,NA 145.0 mEq/L (136-145)
[2025-04-04 06:25] LABS: EST CRCL DRUG DOSING (CG) 84.49 mL/min; ESTIMATED GFR 112.0 mL/min (>60)
[2025-04-04 06:47] LABS: POTASSIUM,K 3.4 mEq/L (3.5-5.1)
[2025-04-04] MEDS: AA 5%/Calcium/D20W/Lytes 1,000 ML IV SCH (16:36)
[2025-04-05 06:11] LABS: A/G RATIO 0.7 (1-2); ALANINE AMINOTRANSFERASE,ALT 38.0 U/L (14-59); ASPARTATE AMNIOTRANSFERASE,AST 30.0 U/L (15-37); BILIRUBIN TOTAL 0.2 mg/dL (0.2-1.0); BLOOD UREA NITROGEN,BUN 11.0 mg/dL (7-18); CARBON DIOXIDE,CO2 32.0 mEq/L (21-32); CHLORIDE,CL 116.0 mEq/L (98-107); CREATININE 0.7 mg/dL (0.55-1.02); EST CRCL DRUG DOSING (CG) 84.49 mL/min; ESTIMATED GFR 112.0 mL/min (>60); GLUCOSE RANDOM 260.0 mg/dL (70-99); POTASSIUM,K 3.8 mEq/L (3.5-5.1); PROTEIN TOTAL,TP 4.8 g/dl (6.4-8.2); SODIUM,NA 153.0 mEq/L (136-145)
[2025-04-05] MEDS: MVI, Adult with Vitamin K 10 ML in AA 5%/Calcium/D20W/Lytes 1,000 ML IV ONE (11:42)
[2025-04-06] MEDS: AA 5%/Calcium/D20W/Lytes 1,000 ML IV SCH (05:00)
[2025-04-06 06:12] LABS: A/G RATIO 0.7 (1-2); ALANINE AMINOTRANSFERASE,ALT 28.0 U/L (14-59); ASPARTATE AMNIOTRANSFERASE,AST 21.0 U/L (15-37); BILIRUBIN TOTAL 0.2 mg/dL (0.2-1.0); BLOOD UREA NITROGEN,BUN 16.0 mg/dL (7-18); CARBON DIOXIDE,CO2 34.0 mEq/L (21-32); CHLORIDE,CL 115.0 mEq/L (98-107); CREATININE 0.7 mg/dL (0.55-1.02); EST CRCL DRUG DOSING (CG) 84.49 mL/min; ESTIMATED GFR 112.0 mL/min (>60); GLUCOSE RANDOM 297.0 mg/dL (70-99); POTASSIUM,K 3.8 mEq/L (3.5-5.1); PROTEIN TOTAL,TP 4.9 g/dl (6.4-8.2); SODIUM,NA 153.0 mEq/L (136-145)
[2025-04-06] MEDS: Prochlorperazine 10 MG/2 ML SDV IVPUSH PRN (13:52)
[2025-04-07 06:25] LABS: A/G RATIO 0.8 (1-2); ALANINE AMINOTRANSFERASE,ALT 28.0 U/L (14-59); ASPARTATE AMNIOTRANSFERASE,AST 18.0 U/L (15-37); BILIRUBIN TOTAL 0.3 mg/dL (0.2-1.0); BLOOD UREA NITROGEN,BUN 14.0 mg/dL (7-18); CARBON DIOXIDE,CO2 36.0 mEq/L (21-32); CREATININE 0.8 mg/dL (0.55-1.02); EST CRCL DRUG DOSING (CG) 73.93 mL/min; ESTIMATED GFR 95.0 mL/min (>60); GLUCOSE RANDOM 278.0 mg/dL (70-99); PROTEIN TOTAL,TP 5.6 g/dl (6.4-8.2)
[2025-04-07 06:40] LABS: CHLORIDE,CL 116.0 mEq/L (98-107); POTASSIUM,K 3.7 mEq/L (3.5-5.1)
[2025-04-07 06:57] LABS: SODIUM,NA 155.0 mEq/L (136-145)
[2025-04-07] MEDS: Insulin Glargine,Human Rec. Analog 100 Units/ML 3 ML Pen SUBCUT SCH (07:48)
[2025-04-08 05:55] LABS: MEAN PLATELET VOLUME 12.4 fl (9.4-12.3); NRBC ABSOLUTE 0.04 (0.00-0.02); NRBC PERCENT 0.4 % (0.0-0.2); PLATELET COUNT,PLT 184 K/mm3 (150-400); RED BLOOD CELL COUNT 3.12 M/mm3 (4.10-5.30); WHITE BLOOD CELL COUNT,WBC 9.39 K/mm3 (3.9-11.3)
[2025-04-08 06:19] LABS: A/G RATIO 0.7 (1-2); ALANINE AMINOTRANSFERASE,ALT 25.0 U/L (14-59); ASPARTATE AMNIOTRANSFERASE,AST 19.0 U/L (15-37); BILIRUBIN TOTAL 0.3 mg/dL (0.2-1.0); BLOOD UREA NITROGEN,BUN 18.0 mg/dL (7-18); CARBON DIOXIDE,CO2 36.0 mEq/L (21-32); CHLORIDE,CL 113.0 mEq/L (98-107); CREATININE 0.9 mg/dL (0.55-1.02); EST CRCL DRUG DOSING (CG) 65.72 mL/min; ESTIMATED GFR 83.0 mL/min (>60); GLUCOSE RANDOM 290.0 mg/dL (70-99); POTASSIUM,K 3.6 mEq/L (3.5-5.1); PROTEIN TOTAL,TP 5.8 g/dl (6.4-8.2); SODIUM,NA 155.0 mEq/L (136-145)
[2025-04-08] MEDS: Ondansetron 4 MG Tab.DIS PO PRN (16:57)
[2025-04-09 05:41] LABS: MEAN PLATELET VOLUME 12.6 fl (9.4-12.3); NRBC ABSOLUTE 0.00 (0.00-0.02); NRBC PERCENT 0.0 % (0.0-0.2); PLATELET COUNT,PLT 158 K/mm3 (150-400); RED BLOOD CELL COUNT 3.11 M/mm3 (4.10-5.30); WHITE BLOOD CELL COUNT,WBC 6.72 K/mm3 (3.9-11.3)
[2025-04-09 05:56] LABS: A/G RATIO 0.8 (1-2); ALANINE AMINOTRANSFERASE,ALT 21.0 U/L (14-59); ASPARTATE AMNIOTRANSFERASE,AST 20.0 U/L (15-37); BILIRUBIN TOTAL 0.3 mg/dL (0.2-1.0); BLOOD UREA NITROGEN,BUN 19.0 mg/dL (7-18); CARBON DIOXIDE,CO2 37.0 mEq/L (21-32); CHLORIDE,CL 110.0 mEq/L (98-107); CREATININE 0.8 mg/dL (0.55-1.02); EST CRCL DRUG DOSING (CG) 73.93 mL/min; ESTIMATED GFR 95.0 mL/min (>60); GLUCOSE RANDOM 196.0 mg/dL (70-99); POTASSIUM,K 3.3 mEq/L (3.5-5.1); PROTEIN TOTAL,TP 5.6 g/dl (6.4-8.2); SODIUM,NA 152.0 mEq/L (136-145)
[2025-04-09] MEDS: Potassium Chloride 20 MEQ Tab.ER PO SCH (08:04)
[2025-04-09] MEDS: Magnesium Sulfate 2 GM/50 mL 2 GM in Premix Bag 1 BAG IV ONE (08:09)
[2025-04-10 06:08] LABS: A/G RATIO 0.8 (1-2); ALANINE AMINOTRANSFERASE,ALT 19.0 U/L (14-59); ASPARTATE AMNIOTRANSFERASE,AST 23.0 U/L (15-37); BILIRUBIN TOTAL 0.3 mg/dL (0.2-1.0); BLOOD UREA NITROGEN,BUN 18.0 mg/dL (7-18); CARBON DIOXIDE,CO2 34.0 mEq/L (21-32); CHLORIDE,CL 108.0 mEq/L (98-107); CREATININE 0.8 mg/dL (0.55-1.02); EST CRCL DRUG DOSING (CG) 73.93 mL/min; ESTIMATED GFR 95.0 mL/min (>60); GLUCOSE RANDOM 151.0 mg/dL (70-99); POTASSIUM,K 3.3 mEq/L (3.5-5.1); PROTEIN TOTAL,TP 5.5 g/dl (6.4-8.2); SODIUM,NA 148.0 mEq/L (136-145)
[2025-04-10 08:54] VITALS: BP 137/93; PULSE 107
== END 2025-04-10 12:50 | disposition home or self-care (01) | DRG 397 ==
LOC: JD.ED 14:25 → JD.SDS 18:16 → JD.ICU 22:43 → JD.MS 04-03 19:13
PROVIDERS: ADMIT Surgery; ATTEND Internal Medicine
PROC: 0DS90ZZ Reposition Duodenum, Open Approach (ICD-10-PCS; 2025-03-27)
PROC: 4A133R1 Monitoring of Arterial Saturation, Peripheral, Percutaneous Approach (ICD-10-PCS; 2025-03-27)
PROC: 3E033XZ Introduction of Vasopressor into Peripheral Vein, Percutaneous Approach (ICD-10-PCS; 2025-03-27)
PROC: 3E03329 Introduction of Other Anti-infective into Peripheral Vein, Percutaneous Approach (ICD-10-PCS; 2025-03-27)
PROC: 3E0336Z Introduction of Nutritional Substance into Peripheral Vein, Percutaneous Approach (ICD-10-PCS; 2025-03-27)
PROC: 0DTJ0ZZ Resection of Appendix, Open Approach (ICD-10-PCS; principal; 2025-03-27 18:30)
PROC: 3E03317 Introduction of Other Thrombolytic into Peripheral Vein, Percutaneous Approach (ICD-10-PCS; 2025-04-05)
DX: Q43.3 Congenital malformations of intestinal fixation (principal); K56.609 Unspecified intestinal obstruction, unspecified as to partial versus complete obstruction; I10 Essential (primary) hypertension; A41.9 Sepsis, unspecified organism; E10.9 Type 1 diabetes mellitus without complications; R65.21 Severe sepsis with septic shock; R57.1 Hypovolemic shock; Z91.048 Other nonmedicinal substance allergy status; I21.A1 Myocardial infarction type 2; K56.601 Complete intestinal obstruction, unspecified as to cause; D84.9 Immunodeficiency, unspecified; E87.20 Acidosis, unspecified; N17.9 Acute kidney failure, unspecified; E87.0 Hyperosmolality and hypernatremia; Z66 Do not resuscitate; Q43.8 Other specified congenital malformations of intestine; H54.7 Unspecified visual loss; J45.909 Unspecified asthma, uncomplicated; G40.909 Epilepsy, unspecified, not intractable, without status epilepticus; N18.9 Chronic kidney disease, unspecified; E10.22 Type 1 diabetes mellitus with diabetic chronic kidney disease; I12.9 Hypertensive chronic kidney disease with stage 1 through stage 4 chronic kidney disease, or unspecified chronic kidney disease; R63.0 Anorexia; I73.00 Raynaud's syndrome without gangrene; G47.10 Hypersomnia, unspecified; F79 Unspecified intellectual disabilities; E87.6 Hypokalemia; D69.6 Thrombocytopenia, unspecified; E87.8 Other disorders of electrolyte and fluid balance, not elsewhere classified; Z68.20 Body mass index [BMI] 20.0-20.9, adult; Z88.5 Allergy status to narcotic agent; Z91.09 Other allergy status, other than to drugs and biological substances; Z79.1 Long term (current) use of non-steroidal anti-inflammatories (NSAID); Z79.899 Other long term (current) drug therapy; Z79.4 Long term (current) use of insulin; Z87.19 Personal history of other diseases of the digestive system; Z86.16 Personal history of COVID-19; Z98.890 Other specified postprocedural states; Z74.01 Bed confinement status
CPT/HCPCS: 36415; 71045; 74018 ×2; 74177; 80053; 81001; 82803; 82947; 83605 ×2; 83690; 83735; 84703; 85025; 86140; 87040 ×2; 87428; 88302; 96365; 96366; 96367; 96372; 99285; A9270; C1758; J1644; J2250 ×2; J2371; J2543; J2704; J3010 ×2; J7030; J7120 ×2; Q9967; 36590; 36600; 80048; 80177; 82533; 84295; 84443; 84484; 85027; 86022; 87641; 93005; 93010; 93306; 94640; 94761; 94762; 96523; 97116-GP; 97162-GP; 97165-GO; 97530-GP; 99211; 99223; 99231; 99232; 99233; J0616; J0696; J0780; J1171; J1308; J1720; J1815-GY; J1836; J1885; J1953; J2020; J2060; J2270; J2405; J2470; J2598; J2997; J3475; J3480; J3490; J7050; J7070